=== PATIENT | female | born 1945 | race Hispanic/Latino ===

== ENCOUNTER 2016-11-18 11:13 | Outpatient (CLI) | payer MEDICARE, OTHER ==
[2016-11-18 13:13] LABS: ALT (SGPT) 49 U/L (0-55); AST (SGOT) 42 U/L (5-34); Alkaline Phosphatase 125 U/L (40-150); Anion Gap 16 mmol/L (10-20); BUN (Urea Nitrogen) 12 mg/dL (9.8-20.1); Bilirubin, Total 0.5 mg/dL (0.2-1.2); Calc. Creatinine Clearance 0 mL/min (70-130); Calcium 9.3 mg/dL (7.8-10.44); Carbon Dioxide 22 mmol/L (23-31); Chloride 104 mmol/L (98-107); Estimated GFR-MDRD 72; Globulin 2.8 g/dL (2.4-3.5); LDL Cholesterol, Calculated 64 mg/dL; Protein, Total 7.1 g/dL (5.8-8.1)
[2016-11-18 13:55] LABS: Hemoglobin A1c 9.5 % (4.0-6.0)
== END 2016-11-18 11:14 ==
LOC: NAVSJIPCSP 11:13
PROVIDERS: ATTEND Internal Medicine
DX: E11.40 Type 2 diabetes mellitus with diabetic neuropathy, unspecified (principal); I11.9 Hypertensive heart disease without heart failure; Z79.899 Other long term (current) drug therapy
CPT/HCPCS: 36415; 80053; 80061; 83036

== ENCOUNTER 2016-12-14 22:51 | Emergency (ER) | payer MEDICARE, OTHER ==
[2016-12-14] MEDS ORDERED: traMADol HCl 50 MG TAB ONE (23:43)
--- NOTE | 2016-12-15 00:02 | PICIS ---
[facility] EMERGENCY RECORD TRIAGE (23:08 [facility]) TRIAGE NOTES: SCRATCHED OLD INCISION BEHIND RIGHT EAR. BLEEDING CONTROLLED AT THIS TIME. STATES IT BLEAD LARGE AMOUNTS FOR APPROX 1 HOUR. BRAIN TUMOR REMOVED AUGUST 2015. (23:08 [facility]) PATIENT: NAME: Kelsey Lozoya, AGE: 71, GENDER: female, : Wed1945, TIME OF GREET: WedDec 14, 2016 22:52, PREFERRED LANGUAGE: Georgian, ETHNICITY: or , ECODE BILLING MAP: [facility], SSN: [id number], Zip Code: [address], KG WEIGHT: 61.23 (est.), PHONE: , , , PERSON ID: [id number], PCP: Cassidy BHATIA POLLACHI. (23:08 [facility]) COMPLAINT: BLEEDING ON NECK. (23:08 [facility]) ADMISSION: URGENCY: 4 Non Urgent, ADMISSION SOURCE: Home, TRANSPORT: CAR, BED: ER -04. (23:08 LK) PAIN: Patient complains of pain described as, pressure, on a scale 0-10 patient rates pain as 8, Location HEADACHE, Pain is constant. (23:11 LK) IMMUNIZATIONS: Flu vaccine up to date, Tetanus immunization up to date, Pneumococcal vaccine up to date. (23:11 LK) SIRS SCORING: Heart Rate 55-109 (0), Temp range 96.8-101.1 (0), respiratory rate 12-24 (0), Mental Status altered: no (0). (23:11 LK) TREATMENTS IN PROGRESS: Treatments given Prehospital: NONE. (23:11 LK) PROVIDERS: TRIAGE NURSE: Raina Pardo RN. (23:08 LK) VITAL SIGNS: BP 139/75, Pulse 104, Resp 20, Temp 99.3, (Oral), Pain 8, (Constant), O2 Sat 95, on Room Air, Time 12/14/2016 23:04. (23:04 LK) PREVIOUS VISIT ALLERGIES: No Known Drug Allergies. (23:08 LK) No Known Drug Allergies. (23:11 [facility]) KNOWN ALLERGIES No Known Drug Allergies CURRENT MEDICATIONS (23:10 [facility]) amitriptyline: TABLET : Strength - 25 mg : ORAL Patient Dose: 25 mg Oral See Notes.take 1 tablet by mouth 3 hours prior to sleep//out of medication. glipiZIDE-metformin: TABLET : Strength - 2.5 mg-500 mg : ORAL Patient Dose: 2 tab(s) Oral 2 times a day (with meals). Tradjenta: TABLET : Strength - 5 mg : ORAL Patient Dose: 5 mg Oral once a day. traMADol: TABLET : Strength - 50 mg : ORAL Patient Dose: 50 mg Oral every 4 to 6 hours. &a-1R&a+25V*p+0X*i1983Z*c202B*c15G*c2P*p-0X&a-25V&a+1R Name: Kelsey Lozoya : 1945 F71 MedRec: [id number] AcctNum: [id number] Prepared: WedDec 14, 2016 23:56 by Interface Page 1 of 4 D [facility] EMERGENCY RECORD simvastatin: TABLET : Strength - 80 mg : ORAL Patient Dose: 80 mg Oral once a day. PARoxetine HCl: TABLET : Strength - 40 mg : ORAL Patient Dose: 40 mg Oral once a day. Lantus: CARTRIDGE (ML) : Strength - 100 unit/mL : SUBCUTANEOUS Patient Dose: 40 units Subcutaneous once a day.unsure of insulin type. VITAL SIGNS (23:04 [facility]) VITAL SIGNS: BP: 139/75, Pulse: 104, Resp: 20, Temp: 99.3 (Oral), Pain: 8 (Constant), O2 sat: 95 on Room Air, Time: 12/14/2016 23:04. NURSING PROCEDURE: WOUND CARE (23:38 [facility]) WOUND CARE: Wound care indicated to promote healing, Wound site: BEHIND RIGHT EAR, Cause of wound: SX INCISION. FOLLOW-UP: After procedure, simple dressing applied, using 4x4 dressing, PRESSURE DRESSING APPLIED USING 3IN KERLIX WRAPPED AROUND PTS HEAD. MEDICATION ADMINISTRATION SUMMARY Drug Name: traMADol, Dose Ordered: 50 mg, Route: Oral, Status: Given, Time: 23:45 12/14/2016, Detailed record available in Medication Service section. MEDICATION SERVICE (23:45 [facility]) traMADol: Order: traMADol (tramadol HCl) - Dose: 50 mg : Oral POTENTIAL SEVERE INTERACTION: amitriptyline oral - Patient tolerated similar in past, This is one of her regular medications Ordered by: Noé Schaefer MD Entered by: Noé Schaefer MD WedDec 14, 2016 23:43 Documented as given by: Raina Pardo RN WedDec 14, 2016 23:45 Patient, Medication, Dose, Route and Time verified prior to administration. Amount given: 50MG, Site: Medication administered P.O., Patient appears Awake and alert- acceptable, Correct patient, time, route, dose and medication confirmed prior to administration, Patient advised of actions and side-effects prior to administration, Allergies confirmed and medications reviewed prior to administration. HPI WOUND CHECK (23:43 [facility]) CHIEF COMPLAINT: Patient presents for evaluation of scalp wound, Patient presents for evaluation of PT with an old scar from brain surgery 2 years ago presents with a recurrence of a bleeding complication she has had off and on for months. She was picking at the site tonight and it suddenly started bleeding. &a-1R&a+25V*p+0X*w3271H*c202B*c15G*c2P*p-0X&a-25V&a+1R Name: Kelsey Lozoya : 1945 F71 MedRec: [id number] AcctNum: [id number] Prepared: WedDec 14, 2016 23:56 by Interface Page 2 of 4 pMD [facility] EMERGENCY RECORD reports he tried stopping it for hours but was unable so came her. Has actually slowed since arrival. No other bleeding disorder. Pt reports her surgeon said he will try and revise the scar if she can get better control of her diabetes but she has been unable. HISTORIAN: History provided by patient, History provided by patient's family. LOCATION: Symptoms are localized. TIME COURSE: Sudden onset of symptoms, Symptoms are improving, are intermittent. ASSOCIATED WITH: No associated drainage, No associated fever, No associated proximal streaking, No associated redness. EXACERBATED BY: Patient's condition exacerbated by nothing. RELIEVED BY: Patient's condition relieved by nothing. ROS (23:45 [facility]) CONSTITUTIONAL: Historian denies chills, denies fever. NEUROLOGIC: Historian denies headache. HEMO/LYMPHATIC: Historian denies abnormal blood clotting. PAST MEDICAL HISTORY MEDICAL HISTORY: Flu vaccine up to date, Tetanus immunization up to date, Pneumococcal vaccine up to date, Notes: BRAIN TUMOR AT [place] (removed 08/19/15), Past medical history includes history of diabetes, Type II, Past medical history includes history of hyperlipidemia, high cholesterol, currently being treated. (23:11 [facility]) FEMALE SURGICAL HISTORY: BRAIN TUMOR REMOVAL (08/19/16), Surgical history of appendectomy, Surgical history of hysterectomy, Surgical history of oophorectomy. (23:11 [facility]K) PSYCHIATRIC HISTORY: Psychiatric history includes, depression. (23:11 [facility]) SOCIAL HISTORY: Patient denies alcohol use, Patient denies drug use, Patient has no smoking history, Lives at home, with family. (23:11 [facility]) NOTES: Nursing records reviewed, Agree with nursing records. (23:49 JL) PHYSICAL EXAM (23:46 JL) CONSTITUTIONAL: Vital signs reviewed, Patient appears non toxic, Patient alert and oriented to person, place and time. HEAD: Head exam included findings of head atraumatic, normocephalic, Behind right ear pt has an old surgical scar. Apparent defect between the muscles and soft tissues. Area is soft and has a small hole in the skin. Pressure produces several small blood clots with shrinking of the soft area of swelling. No erythema. EYES: Eye exam included findings of eyelids normal to inspection, Pupils equally round and reactive to light, Conjunctiva normal. NECK: Neck exam included findings of normal range of motion, Trachea midline. &a-1R&a+25V*p+0X*v9692F*c202B*c15G*c2P*p-0X&a-25V&a+1R Name: Kelsey Lozoya : 1945 F71 MedRec: [id number] AcctNum: [id number] Prepared: WedDec 14, 2016 23:56 by Interface Page 3 of 4 pMD [facility] EMERGENCY RECORD RESPIRATORY CHEST: Respiratory exam included findings of no respiratory distress, Chest exam included findings of chest movement symmetrical. NEURO: [place] coma scale 15, Neuro exam findings include patient oriented to person, place and time, Speech normal. SKIN: Skin exam included findings of skin warm, dry, and normal in color, no rash. PSYCHIATRIC: Normal affect. EVENTS TRANSFER: Triage to Emergency Emergency Room -04. (WedDec 14, 2016 23:08 [facility]) Removed from Emergency Emergency Room -04. (23:52 [facility]) DOCTOR NOTES (23:41 [facility]) TEXT: Minimal bleeding after pressure applied and no further hematoma collection. Pressure dressing applied and instructions given for changing tomorrow. PROBLEM LIST No recorded problems DIAGNOSIS (23:37 [facility]) FINAL: PRIMARY: NONTRAUMATIC HEMATOMA SOFT TISSUE. DISPOSITION PATIENT: Disposition Type: Discharge, Disposition: *Discharge Home. (23:37 [facility]) Patient left the department. (23:52 [facility]) INSTRUCTION (23:38 [facility]) DISCHARGE: HEMATOMA. FOLLOWUP: Cassidy BHATIA, [facility], [address] [place] [id number], [phone], Follow up with Primary Care Physician in 3-4 days. PRESCRIPTION No recorded prescriptions ADMIN (23:49 [facility]) DIGITAL SIGNATURE: MD Schaefer Joshua. [place]: [facility]=MD Schaefer Joshua [facility]=NEW Pardo, Raina &a-1R&a+25V*p+0X*[id number]*c202B*c15G*c2P*p-0X&a-25V&a+1R Name: Kelsey Lozoya : 1945 F71 MedRec: [id number] AcctNum: [id number] Prepared: WedDec 14, 2016 23:56 by Interface Page 4 of 4 pMD [facility] MEDICATION RECONCILIATION You were seen in the Emergency Department on: WedDec 14, 2016 KNOWN ALLERGIES No Known Drug Allergies MEDICATIONS GIVEN WHILE IN THE EMERGENCY DEPARTMENT traMADol (tramadol HCl) - Dose: 50 milligram(s) : Oral HOME MEDICATIONS CONTINUE PRESCRIBED amitriptyline : TABLET : Strength - 25 mg : ORAL Continue as prescribed Patient had been takin mg Oral See Notes. Comment: take 1 tablet by mouth 3 hours prior to sleep//out of medication. glipiZIDE-metformin : TABLET : Strength - 2.5 mg-500 mg : ORAL Continue as prescribed Patient had been takin tab(s) Oral 2 times a day (with meals). Lantus : CARTRIDGE (ML) : Strength - 100 unit/mL : SUBCUTANEOUS Continue as prescribed Patient had been takin units Subcutaneous once a day. Comment: unsure of insulin type. PARoxetine HCl : TABLET : Strength - 40 mg : ORAL Continue as prescribed Patient had been takin mg Oral once a day. simvastatin : TABLET : Strength - 80 mg : ORAL Continue as prescribed Patient had been takin mg Oral once a day. Tradjenta : TABLET : Strength - 5 mg : ORAL Continue as prescribed Patient had been takin mg Oral once a day. traMADol : TABLET : Strength - 50 mg : ORAL Continue as prescribed Patient had been takin mg Oral every 4 to 6 hours. &a-1R&a+25V*p+0X*w3387X*c202B*c15G*c2P*p-0X&a-25V&a+1R Name: Kelsey Lozoya : 1945 F71 MedRec: [id number] AcctNum: [id number] Prepared: WedDec 14, 2016 23:56 by Interface pMD [facility]
--- NOTE | 2016-12-15 00:02 | ERRECORD ---
[facility] EMERGENCY RECORD HPI WOUND CHECK (23:43 JL) CHIEF COMPLAINT: Patient presents for evaluation of scalp wound, Patient presents for evaluation of PT with an old scar from brain surgery 2 years ago presents with a recurrence of a bleeding complication she has had off and on for months. She was picking at the site tonight and it suddenly started bleeding. reports he tried stopping it for hours but was unable so came her. Has actually slowed since arrival. No other bleeding disorder. Pt reports her surgeon said he will try and revise the scar if she can get better control of her diabetes but she has been unable. HISTORIAN: History provided by patient, History provided by patient's family. LOCATION: Symptoms are localized. TIME COURSE: Sudden onset of symptoms, Symptoms are improving, are intermittent. ASSOCIATED WITH: No associated drainage, No associated fever, No associated proximal streaking, No associated redness. EXACERBATED BY: Patient's condition exacerbated by nothing. RELIEVED BY: Patient's condition relieved by nothing. ROS (23:45 JL) CONSTITUTIONAL: Historian denies chills, denies fever. NEUROLOGIC: Historian denies headache. HEMO/LYMPHATIC: Historian denies abnormal blood clotting. PAST MEDICAL HISTORY MEDICAL HISTORY: Flu vaccine up to date, Tetanus immunization up to date, Pneumococcal vaccine up to date, Notes: BRAIN TUMOR AT [place] (removed 08/19/15), Past medical history includes history of diabetes, Type II, Past medical history includes history of hyperlipidemia, high cholesterol, currently being treated. (23:11 [facility]) FEMALE SURGICAL HISTORY: BRAIN TUMOR REMOVAL (08/19/16), Surgical history of appendectomy, Surgical history of hysterectomy, Surgical history of oophorectomy. (23:11 LK) PSYCHIATRIC HISTORY: Psychiatric history includes, depression. (23:11 LK) SOCIAL HISTORY: Patient denies alcohol use, Patient denies drug use, Patient has no smoking history, Lives at home, with family. (23:11 LK) NOTES: Nursing records reviewed, Agree with nursing records. (23:49 [facility]LO[facility]) KNOWN ALLERGIES No Known Drug Allergies CURRENT MEDICATIONS (23:10 [facility]) amitriptyline: TABLET : Strength - 25 mg : ORAL Patient Dose: 25 mg Oral See Notes.take 1 tablet by mouth 3 &a-1R&a+25V*p+0X*s7348N*c202B*c15G*c2P*p-0X&a-25V&a+1R Name: Kelsey Lozoya : 1945 F71 MedRec: [id number] AcctNum: [id number] Prepared: WedDec 14, 2016 23:56 by Interface Page 1 of 3 pMD [facility] EMERGENCY RECORD hours prior to sleep//out of medication. glipiZIDE-metformin: TABLET : Strength - 2.5 mg-500 mg : ORAL Patient Dose: 2 tab(s) Oral 2 times a day (with meals). Tradjenta: TABLET : Strength - 5 mg : ORAL Patient Dose: 5 mg Oral once a day. traMADol: TABLET : Strength - 50 mg : ORAL Patient Dose: 50 mg Oral every 4 to 6 hours. simvastatin: TABLET : Strength - 80 mg : ORAL Patient Dose: 80 mg Oral once a day. PARoxetine HCl: TABLET : Strength - 40 mg : ORAL Patient Dose: 40 mg Oral once a day. Lantus: CARTRIDGE (ML) : Strength - 100 unit/mL : SUBCUTANEOUS Patient Dose: 40 units Subcutaneous once a day.unsure of insulin type. VITAL SIGNS (23:04 [facility]) VITAL SIGNS: BP: 139/75, Pulse: 104, Resp: 20, Temp: 99.3 (Oral), Pain: 8 (Constant), O2 sat: 95 on Room Air, Time: 12/14/2016 23:04. PHYSICAL EXAM (23:46 [facility]) CONSTITUTIONAL: Vital signs reviewed, Patient appears non toxic, Patient alert and oriented to person, place and time. HEAD: Head exam included findings of head atraumatic, normocephalic, Behind right ear pt has an old surgical scar. Apparent defect between the muscles and soft tissues. Area is soft and has a small hole in the skin. Pressure produces several small blood clots with shrinking of the soft area of swelling. No erythema. EYES: Eye exam included findings of eyelids normal to inspection, Pupils equally round and reactive to light, Conjunctiva normal. NECK: Neck exam included findings of normal range of motion, Trachea midline. RESPIRATORY CHEST: Respiratory exam included findings of no respiratory distress, Chest exam included findings of chest movement symmetrical. NEURO: [place] coma scale 15, Neuro exam findings include patient oriented to person, place and time, Speech normal. SKIN: Skin exam included findings of skin warm, dry, and normal in color, no rash. PSYCHIATRIC: Normal affect. MEDICATION ADMINISTRATION SUMMARY Drug Name: traMADol, Dose Ordered: 50 mg, Route: Oral, Status: Given, &a-1R&a+25V*p+0X*y2405E*c202B*c15G*c2P*p-0X&a-25V&a+1R Name: Kelsey Lozoya : 1945 F71 MedRec: [id number] AcctNum: [id number] Prepared: WedDec 14, 2016 23:56 by Interface Page 2 of 3 pMD [facility] EMERGENCY RECORD Time: 23:45 12/14/2016, Detailed record available in Medication Service section. DOCTOR NOTES (23:41 [facility]) TEXT: Minimal bleeding after pressure applied and no further hematoma collection. Pressure dressing applied and instructions given for changing tomorrow. PROBLEM LIST No recorded problems DIAGNOSIS (23:37 [facility]) FINAL: PRIMARY: NONTRAUMATIC HEMATOMA SOFT TISSUE. PRESCRIPTION No recorded prescriptions DISPOSITION PATIENT: Disposition Type: Discharge, Disposition: *Discharge Home. (23:37 [facility]) Patient left the department. (23:52 [facility]) [place]: [facility]=MD Silvano, Noé [facility]=NEW Pardo, Raina &a-1R&a+25V*p+0X*[id number]*c202B*c15G*c2P*p-0X&a-25V&a+1R Name: Kelsey Lozoya : 1945 F71 MedRec: [id number] AcctNum: [id number] Prepared: WedDec 14, 2016 23:56 by Interface Page 3 of 3 pMD [facility]
== END 2016-12-14 23:46 | disposition home or self-care (01) ==
LOC: NAV ERS 22:51
DX: M79.81 Nontraumatic hematoma of soft tissue (principal); E11.9 Type 2 diabetes mellitus without complications; E78.5 Hyperlipidemia, unspecified; E78.00 Pure hypercholesterolemia, unspecified; Z79.899 Other long term (current) drug therapy; Z85.841 Personal history of malignant neoplasm of brain
CPT/HCPCS: 99282

== ENCOUNTER 2017-02-16 10:37 | Outpatient (CLI) | payer MEDICARE, OTHER ==
[2017-02-16 13:09] LABS: Hemoglobin A1c 10.3 % (4.0-6.0)
[2017-02-16 13:45] LABS: Cardiac Risk 4.2 (Less than 4.5)
== END 2017-02-16 10:38 ==
LOC: NAVSJIPCSP 10:37
PROVIDERS: ATTEND Internal Medicine
DX: E11.40 Type 2 diabetes mellitus with diabetic neuropathy, unspecified (principal); E78.5 Hyperlipidemia, unspecified
CPT/HCPCS: 36415; 80061; 83036

== ENCOUNTER 2017-05-27 10:38 | Outpatient (CLI) | payer MEDICARE, OTHER ==
[2017-05-27 12:51] LABS: Hemoglobin A1c 9.3 % (4.0-6.0)
[2017-05-27 13:09] LABS: Cardiac Risk 4.1 (Less than 4.5)
== END 2017-05-27 10:39 | disposition home or self-care (01) ==
LOC: NAVSJIPCSP 10:38
PROVIDERS: ATTEND Internal Medicine
DX: E78.5 Hyperlipidemia, unspecified (principal); E11.40 Type 2 diabetes mellitus with diabetic neuropathy, unspecified; Z79.899 Other long term (current) drug therapy
CPT/HCPCS: 36415; 80061; 83036

== ENCOUNTER 2017-10-11 09:27 | Emergency (ER) | payer MEDICARE, OTHER ==
[2017-10-11 10:39] LABS: #Basophils 0.1 thou/uL (0.0-0.2); #Eosinphils 0.2 thou/uL (0.0-0.7); #Lymphocytes 1.7 thou/uL (1.20-3.40); #Monocytes 0.7 thou/uL (0.11-0.59); #Neutrophils 8.8 thou/uL (1.40-6.50); %Basophils 0.6 % (0.0-1.0); %Neutrophils 76.5 % (42.0-75.0); Hemoglobin 14.6 g/dL (12.0-16.0); Mean Corpuscular HGB CONC 31.8 g/dL (32.0-36.0); Mean Corpuscular Hemoglobin 28.6 pg (27.0-31.0); Mean Corpuscular Volume 89.9 fl (81.0-99.0); Mean Platelet Volume 9.9 fL (7.4-10.4); Platelet Count 204 thou/uL (130-400); RBC Distribution Width 12.6 % (11.5-14.5); Red Blood Cell (RBC) Count 5.12 mill/uL (4.20-5.40); White Blood Cell (WBC) Count 11.5 thou/uL (4.8-10.8)
[2017-10-11] MEDS ORDERED: Sodium Chloride 0.9% 1,000 ML ONE (10:49)
[2017-10-11 10:51] LABS: Bilirubin Negative (Negative); Blood, Urine Negative (Negative); Clarity Slightly Cloudy (Clear); Leukocyte Negative (Negative); Nitrite Negative (Negative); Protein, Urine (Dipstick) Trace mg/dL (Neg-Trace)
[2017-10-11 10:52] LABS: Glucose, Urine (Dipstick) 100 mg/dL (Negative)
[2017-10-11 10:52] LABS: ALT (SGPT) 29 U/L (8-55); AST (SGOT) 46 U/L (5-34); Albumin 4.4 g/dL (3.4-4.8); Alkaline Phosphatase 124 U/L (40-150); Anion Gap 19 mmol/L (10-20); BUN (Urea Nitrogen) 15 mg/dL (9.8-20.1); Bilirubin, Total Less than 0.1 mg/dL (0.2-1.2); Calc. Creatinine Clearance 0 mL/min (70-130); Calcium 10.3 mg/dL (7.8-10.44); Carbon Dioxide 24 mmol/L (23-31); Chloride 99 mmol/L (98-107); Estimated GFR-MDRD 63; Glucose 299 mg/dL (83-110); Potassium 4.7 mmol/L (3.5-5.1); Protein, Total Less than 0.8 g/dL (6.0-8.3); Sodium 137 mmol/L (136-145)
[2017-10-11 11:17] LABS: RBC/HPF 0-3 HPF (0-3)
[2017-10-11 11:18] LABS: Bacteria/HPF 1+ HPF (None Seen); Crystals/HPF 2+ AMORPH URATES HPF (Negative); Squamous Epithelial 0-3 HPF (0-3)
--- NOTE | 2017-10-11 11:42 | CT ---
NONCONTRAST CT OF THE BRAIN: INDICATION: A 72-year-old female with a history of illness, sore throat, cough, congestion, and fever. The patie nt had a fall a few days ago landing on her face without loss of consciousness. Now having some inco ntinence. COMPARISON: Prior CT of the brain dated 07/24/13 and MRI of the brain dated 05/25/17. FINDINGS: Postsurgical changes involving the right occipital skull are stable. No definite acute infarct, hemo rrhage, or hydrocephalus is present. Generalized cerebral and cerebellar atrophy is similar. No acu te infarct, hemorrhage, or hydrocephalus is noted. Mastoid air cells are clear. The skull is intact . IMPRESSION: 1. No acute intracranial abnormality. 2. Stable postoperative changes involving the right posterior cranial fossa. 3. Mild generalized cerebral and cerebellar atrophy. POS: [facility]
--- NOTE | 2017-10-11 11:46 | CT ---
CT FACE WITHOUT CONTRAST: INDICATIONS: Fall with facial trauma. FINDINGS: No displaced facial fracture is evident. There is mild paranasal sinus disease involving the ethmoid air cells, the sphenoid sinus, and the left maxillary sinus. There is advanced TMJ osteoarthrosis, which is similar to the comparison exam, dated 07/24/2013. There are scattered vascular calcificatio ns. The visualized intracranial contents appear within normal limits. The orbital rims are intact. The zygomatic arches are intact. There is worsening periapical lucency involving the right central maxillary incisor, which may reflect worsening periodontal disease. IMPRESSION: 1. No acute facial fracture. 2. Mild paranasal sinus disease. 3. Worsening periapical lucency involving the right central maxillary incisor, which may reflect wor sening periodontal disease. Dental consultation is recommended. 4. Advanced bilateral temporomandibular joint osteoarthrosis. POS: [facility]
--- NOTE | 2017-10-11 11:54 | RAD ---
AP VIEW CHEST: 10/11/2017 HISTORY: A 72-year-old female with a history of a cough. COMPARISON: 05/10/2012 FINDINGS: AP view chest demonstrates suboptimal inspiratory effort. There is mild elevation of the right hemid iaphragm. Mild pulmonary vascular congestion is seen. No evidence of effusions, pneumonia, or pneum othorax is seen. IMPRESSION: Suboptimal inspiratory effort and elevated right hemidiaphragms. POS: [facility]
[2017-10-11] MEDS ORDERED: Sulfameth/Trimethoprim DS 800-160mg TAB ONE (12:10)
== END 2017-10-11 12:53 | disposition home or self-care (01) ==
LOC: NAV ERS 09:27
DX: B34.9 Viral infection, unspecified (principal); S00.83XA Contusion of other part of head, initial encounter; N39.0 Urinary tract infection, site not specified; E78.5 Hyperlipidemia, unspecified; E11.9 Type 2 diabetes mellitus without complications; F32.9 Major depressive disorder, single episode, unspecified; Z79.899 Other long term (current) drug therapy; Z79.4 Long term (current) use of insulin; Z79.891 Long term (current) use of opiate analgesic; X58.XXXA Exposure to other specified factors, initial encounter
CPT/HCPCS: 70450; 70486; 71010; 80053; 81001; 81003; 83605; 83880; 85025; 87040; 87081; 87086; 87430; 93005; 94760; 96360; 96361; A4353; J7050

== ENCOUNTER 2017-12-04 11:02 | Emergency (ER) | payer MEDICARE, OTHER | END 2017-12-04 11:32 | disposition home or self-care (01) | LOC: NAV ERS 11:02 | DX: H60.22 Malignant otitis externa, left ear (principal); E11.9 Type 2 diabetes mellitus without complications; E78.5 Hyperlipidemia, unspecified; F32.9 Major depressive disorder, single episode, unspecified; Z79.84 Long term (current) use of oral hypoglycemic drugs; Z79.891 Long term (current) use of opiate analgesic; Z79.899 Other long term (current) drug therapy; Z85.841 Personal history of malignant neoplasm of brain | CPT/HCPCS: 99282 ==

== ENCOUNTER 2018-03-11 11:03 | Emergency (ER) | payer MEDICARE, OTHER ==
[2018-03-11] MEDS ORDERED: Benzonatate 100 MG CAP ONE (12:04)
--- NOTE | 2018-03-11 12:19 | RAD ---
PORTABLE FRONTAL CHEST RADIOGRAPH: 03/11/2018 HISTORY: Wheezing. Cough. Congestion. COMPARISON: 10/11/2017 FINDINGS: Stable mild interstitial prominence noted in the perihilar regions. No pneumothorax, pleural fluid, focal consolidation, or alveolar edema. IMPRESSION: No acute findings. Stable appearance of the chest. POS: [facility]
[2018-03-11 13:35] LABS: Bilirubin Small (Negative); Blood, Urine Negative (Negative); Clarity Slightly Cloudy (Clear); Glucose, Urine (Dipstick) 250 mg/dL (Negative); Leukocyte Negative (Negative); Nitrite Negative (Negative); Protein, Urine (Dipstick) 30 mg/dL (Neg-Trace); Specific Gravity, Urine 1.025 (1.005-1.030)
[2018-03-11 13:47] LABS: RBC/HPF 0-3 HPF (0-3)
[2018-03-11 13:48] LABS: Bacteria/HPF 1+ HPF (None Seen); Hyaline Casts/LPF 0-3 HYALINE CAST LPF (0-3 Hyaline)
== END 2018-03-11 14:14 | disposition home or self-care (01) ==
LOC: NAV ERS 11:03
DX: J20.9 Acute bronchitis, unspecified (principal); E11.9 Type 2 diabetes mellitus without complications; E78.5 Hyperlipidemia, unspecified; F32.9 Major depressive disorder, single episode, unspecified; Z79.891 Long term (current) use of opiate analgesic; Z79.899 Other long term (current) drug therapy; Z79.84 Long term (current) use of oral hypoglycemic drugs
CPT/HCPCS: 51701; 71045; 81003; 81015; 93005; 94640; A4353; J7620

== ENCOUNTER 2018-07-09 17:07 | Emergency (ER) | payer MEDICARE, OTHER ==
[2018-07-09 17:50] LABS: Bilirubin Negative (Negative); Blood, Urine Negative (Negative); Glucose, Urine (Dipstick) 250 mg/dL (Negative); Leukocyte Trace (Negative); Nitrite Negative (Negative); Protein, Urine (Dipstick) 30 mg/dL (Neg-Trace); Specific Gravity, Urine 1.025 (1.005-1.030)
[2018-07-09 17:53] LABS: Clarity Hazy (Clear)
--- NOTE | 2018-07-09 18:01 | CT ---
CT BRAIN NONCONTRAST: DATE: 07/09/18 TIME: 5:45 p.m. HISTORY: 73-year-old female with altered mental status. COMPARISON: 10/11/17. FINDINGS: Again noted are the right occipital craniotomy changes, with the osseous defect bridged by metallic m esh. Deep to this, there is a small region of right cerebellar encephalomalacia and gliosis. Moderate dilation of the lateral and third ventricles is unchanged since the previous CT. Mild to mod erate diffuse chronic ischemic white matter changes, and diffuse mild brain parenchymal volume loss. No acute intra-axial hemorrhage, mass effect, midline shift, or extra-axial fluid collection. No acut e calvarial fracture. No interval change overall. IMPRESSION: 1. Old right posterior fossa postsurgical changes. 2. No acute intracranial findings. 3. Ventriculomegaly. 4. Chronic ischemic white matter changes and diffuse involutional changes. 5. No interval change overall since 10/11/17. IMELDA Crowell POS: [facility]
[2018-07-09 18:04] LABS: Bacteria/HPF 2+ HPF (None Seen); Crystals/HPF 2+ AMORPH URATES HPF (Negative); Squamous Epithelial 0-3 HPF (0-3)
--- NOTE | 2018-07-09 18:10 | RAD ---
RADIOGRAPH CHEST 1 VIEW: 07/09/18 HISTORY: 73-year-old female with fever. FINDINGS: Lungs are hypoinflated, making this a limited study. There is no air space density, pulmonary edema, or pneumothorax. The lateral costophrenic angles are sharp. IMPRESSION: No acute pulmonary findings. ondina [] POS: [facility]
[2018-07-09 18:44] LABS: #Eosinphils 0.1 thou/uL (0.0-0.7); #Lymphocytes 1.2 thou/uL (1.20-3.40); #Monocytes 0.6 thou/uL (0.11-0.59); #Neutrophils 8.8 thou/uL (1.40-6.50); %Basophils 0.4 % (0.0-1.0); %Eosinophils 0.7 % (0.0-10.0); %Lymphocytes 11.4 % (21.0-51.0); %Monocytes 5.4 % (0.0-10.0); %Neutrophils 82.1 % (42.0-75.0); Hemoglobin 13.4 g/dL (12.0-16.0); Mean Corpuscular Hemoglobin 27.7 pg (27.0-31.0); Mean Corpuscular Volume 86.6 fL (78.0-98.0); Platelet Count 167 thou/uL (130-400); RBC Distribution Width 12.3 % (11.5-14.5); Red Blood Cell (RBC) Count 4.86 mill/uL (4.20-5.40); White Blood Cell (WBC) Count 10.7 thou/uL (4.8-10.8)
[2018-07-09 18:48] LABS: ALT (SGPT) 34 U/L (8-55); AST (SGOT) 46 U/L (5-34); Albumin 4.3 g/dL (3.4-4.8); Alkaline Phosphatase 100 U/L (40-150); Anion Gap 16 mmol/L (10-20); BUN (Urea Nitrogen) 12 mg/dL (9.8-20.1); Bilirubin, Total 0.7 mg/dL (0.2-1.2); CK (CPK) 76 U/L (29-168); Calc. Creatinine Clearance 0 mL/min (70-130); Calcium 9.7 mg/dL (7.8-10.44); Carbon Dioxide 20 mmol/L (23-31); Chloride 102 mmol/L (98-107); Estimated GFR-MDRD 75; Globulin 3.1 g/dL (2.4-3.5); Glucose 199 mg/dL (83-110); Lipase 21 U/L (8-78); Protein, Total 7.4 g/dL (6.0-8.3); Sodium 134 mmol/L (136-145)
[2018-07-09 18:52] LABS: CKMB 2.2 ng/mL (0-6.6); Troponin I Less than 0.010 ng/mL (< 0.028)
[2018-07-09] MEDS ORDERED: Acetaminophen 500 MG TAB ONE (18:53)
[2018-07-09] MEDS ORDERED: Sodium Chloride 0.9% 1,000 ML ONE (18:53)
[2018-07-09] MEDS ORDERED: cefTRIAXone\\ROCEPHIN 1 GM VIAL ONE (19:05)
[2018-07-09] MEDS ORDERED: Levofloxacin 500 mg/D5W 100 ml Premix Bag ONE (19:05)
== END 2018-07-09 20:49 | disposition short-term general hospital (02) ==
LOC: NAV ERS 17:07
DX: A41.9 Sepsis, unspecified organism (principal); N39.0 Urinary tract infection, site not specified; R41.82 Altered mental status, unspecified; E11.9 Type 2 diabetes mellitus without complications; E78.5 Hyperlipidemia, unspecified; Z79.899 Other long term (current) drug therapy
CPT/HCPCS: 51701; 70450; 71045; 80053; 81003; 81015; 82553; 83605; 83690; 84484; 85025; 87040; 87077; 87086; 87186; 93005; 96365; 96375; A4353; J0696; J1956; J7050

== ENCOUNTER 2018-07-14 16:34 | Inpatient (IN) | payer MEDICARE, OTHER ==
[2018-07-14 16:40] VITALS: BMI 26.9
[2018-07-14] MEDS ORDERED: HYDROcodone/Acetaminophen 10/325 mg Tablet PO PRN (18:36)
[2018-07-14] MEDS ORDERED: PROVENTIL INHALER 6.7 G (200 INHALATIONS) INH PRN (19:00)
[2018-07-14] MEDS: Simvastatin 40 MG TAB PO SCH (20:35)
[2018-07-14] MEDS: guaiFENesin ER 600 MG TAB PO SCH (20:36)
[2018-07-14] MEDS ORDERED: Amitriptyline HCl 25 MG TAB PO SCH (21:00)
[2018-07-14] MEDS ORDERED: Levemir Flexpen 100 UNITS/ML PEN SC SCH (21:00)
[2018-07-14] MEDS ORDERED: Insulin Glargine 100 UNIT/ML 3 ML PEN SQ SCH (21:00)
--- NOTE | 2018-07-15 00:30 | HP ---
DATE OF ADMISSION: 07/14/2018 CHIEF COMPLAINT: Status post cholecystitis and cholecystectomy for physical therapy. BRIEF HISTORY: This is a very pleasant 73-year-old female with extensive past medical history, was a dmitted to [facility] on 07/09/2018 with confusion and fever. Initial diagnosis was uri nary tract infection. She continued to have fever despite IV antibiotic therapy and so she underwent CT abdomen and pelvis, which was suggestive of cholecystitis. She then underwent an abdominal ultra sound and then underwent surgical removal of gallbladder by Dr. Song. She has been switched over to oral antibiotics. Her confusion has mostly cleared. She does have some baseline mild dementia. Sh e was significantly deconditioned, so she has been transferred here for therapy. Currently, patient is in the room with her . She denies any complaints. She is tolerating her p.o. intake. She also has history of brain tumor, status post removal. She has lumbar spine degenerative disk diseas e. PAST MEDICAL HISTORY: 1. Diabetes mellitus type 2. 2. Dyslipidemia. 3. Brain tumor, status post removal. 4. 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 5. Mild dementia. 6. Hypertension. 7. Anxiety and depression. PAST SURGICAL HISTORY: 1. Appendectomy. 2. Oophorectomy. 3. Brain tumor removal. 4. Recent laparoscopic cholecystectomy. ALLERGIES: No known drug allergies. FAMILY HISTORY: Noncontributory to current admission. PSYCHOSOCIAL HISTORY: She has very good family support through her , her nephews also involve d in her care. No documented history of tobacco, alcohol, or IV drug abuse. REVIEW OF SYSTEMS: Cardiovascular: Denies any chest pain, shortness of breath, palpitations, PND, o rthopnea, or pedal edema. Respiratory: Denies any chronic cough, expectoration, or pleuritic type c hest pain. Gastrointestinal: Improving abdominal-much improved nausea. Denies any hematemesis, charmaine octavio, or hematochezia. Genitourinary: Denies any frequency, urgency, dysuria, or hematuria. Central Nervous System: Generalized weakness. HEENT: No difficulty with speech, vision, hearing, or swall owing. PHYSICAL EXAMINATION: GENERAL: A very pleasant 73-year-old female in no apparent distress. She responds appropriately to questions. She is able to recognize me. Her is in the room. VITAL SIGNS: She is afebrile, heart rate 87, respirations 20, oxygen saturation 93% on room air, blo od pressure is 150/79. HEENT: Normocephalic, atraumatic. Pupils are equal and reactive to light and accommodation. NECK: No JVD, thyromegaly, cervical adenopathy, throat exudates, no carotid bruits. CARDIOVASCULAR: S1, S2 plus rate and rhythm regular. RESPIRATORY SYSTEM: Normal vesicular breath sounds heard in all lung andres. ABDOMEN: Soft, minimal tenderness in the incision area. Bowel sounds heard in all quadrants. No gu arding, rebound, or rigidity. EXTREMITIES: Without cyanosis or clubbing. Peripheral pulses are palpable. CENTRAL NERVOUS SYSTEM: Generalized weakness. LABORATORY VALUES: Blood sugars are 238, 261, 310, 269. IMPRESSION: 1. Cholecystitis, status post cholecystectomy. 2. Diabetes mellitus type 2. 3. Hypertension. 4. Dyslipidemia. 5. Chronic back pain with lumbar degenerative disk disease. 6. History of brain tumor, status post surgery. 7. Anxiety and depression. 8. Possible mild dementia and significant deconditioning. PLAN: 1. Continue discharge medications from previous hospital. 2. Diet: As tolerated, but they will be an 1800 calorie, heart-healthy diet. The consistency will be as tolerated. 3. Accu-Cheks with sliding scale coverage. 4. Deep venous thrombosis prophylaxis with PlexiPulses. 5. Monitor blood pressure and adjust medications as needed. 6. Check CBC and BMP in the morning. 7. Consult physical therapy and occupational therapy. 8. I discussed with the patient and in detail and all questions were answered.
[2018-07-15 05:56] LABS: Anion Gap 16 mmol/L (10-20); BUN (Urea Nitrogen) 10 mg/dL (9.8-20.1); Calc. Creatinine Clearance 63 mL/min (70-130); Calcium 9.9 mg/dL (7.8-10.44); Carbon Dioxide 21 mmol/L (23-31); Chloride 99 mmol/L (98-107); Estimated GFR-MDRD 66; Glucose 280 mg/dL (83-110); Potassium 3.8 mmol/L (3.5-5.1); Sodium 132 mmol/L (136-145)
[2018-07-15 06:07] LABS: Band 20 % (5-11); Eosinophils 1 % (0-10); Hemoglobin 13.7 g/dL (12.0-16.0); Lymphocytes 15 % (21-51); MDiff Complete? YES; Mean Corpuscular Hemoglobin 28.2 pg (27.0-31.0); Mean Corpuscular Volume 88.3 fL (78.0-98.0); Metamyelocyte 2 % (0-0); Monocytes 4 % (0-10); Neutrophil 58 % (42-75); PLT Morphology Comment Appears Adequate; Platelet Count 168 thou/uL (130-400); RBC Morphology Normal; Red Blood Cell (RBC) Count 4.85 mill/uL (4.20-5.40)
[2018-07-15] MEDS: PARoxetine 20 MG TAB PO SCH (07:51)
[2018-07-15] MEDS: guaiFENesin ER 600 MG TAB PO SCH ×2 (07:52→20:17)
[2018-07-15] MEDS: Hydrochlorothiazide 25 MG TAB PO SCH (07:52)
[2018-07-15] MEDS: Alogliptin 25 MG TAB PO SCH (07:53)
[2018-07-15] MEDS ORDERED: Insulin Glargine 100 UNIT/ML 3 ML PEN SQ SCH (08:21)
--- NOTE | 2018-07-15 08:41 | PRG ---
DATE OF SERVICE: 07/15/2018 SUBJECTIVE: Ms. Lozoya is doing well. Her caregiver is in the room. She is eating her breakfast . She apparently did not sleep that well last night because pharmacy apparently switched her time on her Elavil back to 9:00 p.m. I had changed it to 7:00 p.m., which is how the patient takes it [place]. No other concerns or questions. She is going to be evaluated by therapy today and start therapy . She was also started on her long-acting insulin, but at a lower dose last night. OBJECTIVE: VITAL SIGNS: She is afebrile, heart rate 93, respirations 22, oxygen saturation 93% on room air, blo od pressure 152/84. CARDIOVASCULAR: S1, S2 plus, rate and rhythm regular. RESPIRATORY: Normal vesicular breath sounds heard in all lung andres. ABDOMEN: Soft. Minimal tenderness. Incisions look healthy. Bowel sounds heard in all quadrants. EXTREMITIES: Without cyanosis or clubbing. CENTRAL NERVOUS SYSTEM: Generalized weakness. LABORATORY VALUES: White count is 10, H&H is 13.7 and 42.8 with a platelet count of 168. Sodium sli ghtly low at 132, potassium 3.8, BUN and creatinine is 10 and 0.84. Blood sugars are 269, 309, 277. IMPRESSION: 1. Status post cholecystitis and underwent cholecystectomy. 2. Diabetes mellitus type 2. 3. Hypertension. 4. Dyslipidemia. 5. Anxiety and depression. 6. Lumbar degenerative disk disease. 7. Possible early dementia. 8. History of brain tumor, status post surgery. PLAN: 1. Increase long-acting insulin to 40 units at night. 2. Continue sliding scale coverage. 3. 1800 calorie heart healthy diet. 4. Deep venous thrombosis prophylaxis with PlexiPulses. 5. Continue current medications. 6. Routine laboratory values. 7. Physical therapy. 8. Discussed with patient and caregiver in detail and all questions answered. 9. Discussed with nursing and they are going to change the amitriptyline timing back to 7:[address] Soraya Baker synchronizer this weekend.
[2018-07-15] MEDS ORDERED: RESVERATROL 50 MG PO SCH (09:00)
[2018-07-15] MEDS ORDERED: HYDROcodone/Acetaminophen 10/325 mg Tablet PO PRN (11:15)
[2018-07-15] MEDS ORDERED: Dextrose 5% in Water 1,000 ML IV PRN (14:31)
[2018-07-15] MEDS ORDERED: Dextrose 50% Abboject 50 ML SYRINGE IVP PRN (14:31)
[2018-07-15] MEDS: HumaLOG 300 UNITS/3 ML VIAL SC PRN ×2 (17:50→20:21)
[2018-07-15] MEDS: traMADol HCl 50 MG TAB PO PRN (17:57)
[2018-07-15] MEDS: Acetaminophen 500 MG TAB PO PRN (17:57)
[2018-07-15] MEDS: Amitriptyline HCl 25 MG TAB PO SCH (18:41)
[2018-07-15] MEDS: Simvastatin 40 MG TAB PO SCH (20:17)
[2018-07-16] MEDS: HumaLOG 300 UNITS/3 ML VIAL SC PRN ×4 (06:10→20:34)
--- NOTE | 2018-07-16 08:21 | PRG ---
DATE OF SERVICE: 07/16/2018 DATE OF ADMISSION: 07/14/2018 Ms. Lozoya is a very pleasant 73-year-old female. She was admitted to [facility] through the emergency room with a diagnosis of urinary tract infection and sepsis. She also was fo und to have cholecystitis and had a cholecystectomy done by Dr. Song. She has done much better, con fusion has cleared, and she was transferred here because of her significant deconditioning. She is h ere for physical therapy and occupational therapy. The patient does have multiple comorbidities including diabetes mellitus, type 2; hypertension; degen erative disk disease of the lumbar spine; mild dementia; hyperlipidemia. PHYSICAL EXAMINATION: VITAL SIGNS: Today, reveal blood pressure 136/65, pulse 101, respirations 20, O2 sat 94-95% on room air, T-max 99.3, weight 151 pounds. GENERAL: This is a well-developed, well-nourished, slightly obese female, in no apparent di stress at this time. HEENT: Reveals normocephalic, nontraumatic cranium. Pupils are equally round and reactive. Extraoc ular movements intact. Nose and throat are slightly dry. NECK: Supple, without mass, nodes, or bruits. CHEST: Clear to auscultation. No rales, no rhonchi, no wheezes are heard. CARDIOVASCULAR: Reveals a regular rate and rhythm without murmurs, gallops, or rubs. ABDOMEN: Soft, slightly obese, nontender. Incision looks good. Normal bowel sounds in all 4 quadra nts. No rebound or guarding is noted. EXAM: Deferred. EXTREMITIES: Reveal no clubbing, cyanosis, or edema. LABORATORY DATA: Reveals an Accu-Chek yesterday morning fasting 227, before lunch 303, before supper 354, last night before bedtime 433, this morning fasting is 284. She presently is on 40 units subcu taneous, which she got last night. After significant discussion, we decided to go ahead and split her dose and give her 25 units twice a day and she will start that this morning. IMPRESSION: 1. Cholecystitis, status post cholecystectomy. 2. Diabetes, uncontrolled. 3. Hypertension. 4. Hyperlipidemia. 5. Chronic back pain, secondary to lumbar disk disease. 6. History of brain tumor, status post surgery. 7. Anxiety/depressive disorder. 8. Possible mild dementia. 9. Significant generalized weakness. PLAN: 1. Continue present medications. 2. Increase Lantus to 25 units subcu this morning and then 25 units b.i.d. 3. Continue Accu-Cheks with sliding scale. 4. Deep venous thrombosis prophylaxis. 5. Monitor blood pressure and adjust as needed. 6. Lab this morning is pending. 7. Continue physical therapy and occupational therapy.
[2018-07-16] MEDS: Insulin Glargine 100 UNIT/ML 3 ML PEN SQ SCH ×2 (08:57→20:33)
[2018-07-16] MEDS: Acetaminophen 500 MG TAB PO PRN (08:58)
[2018-07-16] MEDS: PARoxetine 20 MG TAB PO SCH (08:58)
[2018-07-16] MEDS: Alogliptin 25 MG TAB PO SCH (08:58)
[2018-07-16] MEDS: Hydrochlorothiazide 25 MG TAB PO SCH (08:58)
[2018-07-16] MEDS: guaiFENesin ER 600 MG TAB PO SCH ×2 (08:58→20:32)
[2018-07-16] MEDS: traMADol HCl 50 MG TAB PO PRN (08:59)
[2018-07-16] MEDS ORDERED: Milk Of Magnesia 30 ML UDCUP PO PRN (18:17)
[2018-07-16] MEDS ORDERED: Bisacodyl 10 MG SUPP PR SCH (18:30)
[2018-07-16] MEDS ORDERED: Polyethylene Glycol 3350 17 GM Packet PO SCH (18:30)
[2018-07-16] MEDS: Amitriptyline HCl 25 MG TAB PO SCH (18:31)
[2018-07-16] MEDS: Simvastatin 40 MG TAB PO SCH (20:32)
[2018-07-17] MEDS: HumaLOG 300 UNITS/3 ML VIAL SC PRN ×4 (06:17→20:28)
--- NOTE | 2018-07-17 07:35 | RAD ---
ABDOMEN 1 VIEW: HISTORY: A 73-year-old female with a history of constipation with concern for obstruction. FINDINGS: There is fairly considerable solid fecal burden throughout the entire colon and rectum. There is arnie e minimal gas in nondilated small bowel. No overt calculus. No evidence for significant bowel obstr uction. IMPRESSION: Considerable fecal burden throughout the colon and rectum. No other significant acute process. No o vert bowel obstruction. POS: [facility]
[2018-07-17 08:45] LABS: ALT (SGPT) 97 U/L (8-55); AST (SGOT) 66 U/L (5-34); Albumin 3.8 g/dL (3.4-4.8); Alkaline Phosphatase 226 U/L (40-150); Anion Gap 16 mmol/L (10-20); BUN (Urea Nitrogen) 17 mg/dL (9.8-20.1); Bilirubin, Total 0.7 mg/dL (0.2-1.2); Calc. Creatinine Clearance 58 mL/min (70-130); Calcium 10.1 mg/dL (7.8-10.44); Carbon Dioxide 22 mmol/L (23-31); Chloride 100 mmol/L (98-107); Estimated GFR-MDRD 60; Glucose 222 mg/dL (83-110); Potassium 3.7 mmol/L (3.5-5.1); Protein, Total 7.8 g/dL (6.0-8.3); Sodium 134 mmol/L (136-145)
[2018-07-17] MEDS ORDERED: Magnesium Citrate 300 ML BOT PO SCH (08:45)
[2018-07-17] MEDS ORDERED: Fleet Enema 133 ML BOT FS SCH (08:45)
--- NOTE | 2018-07-17 09:00 | PRG ---
DATE OF SERVICE: 07/17/2018 DATE OF ADMISSION: 07/14/2018 HISTORY OF PRESENT ILLNESS: Ms. Lozoya is a very pleasant 73-year-old white female that initially presented to [facility] through the ER with a urinary tract infection, sepsis. She was fou nd to have cholecystitis and a colectomy was done by Dr. Song. Postoperatively, she did well. Her confusion has cleared. She was transferred here for PT and OT. The patient states she is doing well and has no complaints today. She has not had a bowel movement s giovanna her surgery. Flat plate of the abdomen reveals quite a bit of stool load. This morning, she fe els kind of cold and clammy. It was noted that her white count a couple days ago was 10,000. We micky l repeat a CBC and a comp met this morning. She states she is doing well and eating well and has no complaints at all today. VITAL SIGNS: Today, reveal blood pressure this morning 126/65, pulse 96, respirations 20, T-max last night was 100.1. LABORATORY DATA: Lab has been ordered with a comp met, a CBC, and a urinalysis this morning. Flat p late of the abdomen already done reveals increased stool burden. PHYSICAL EXAMINATION: GENERAL: This is a well-developed, well-nourished, pleasant female in no apparent distress at this time. She has no complaints today. HEENT: Reveals normocephalic, nontraumatic cranium. Pupils equally, round, and reactive. Nose and throat are slightly dry. NECK: Supple, without mass, nodes, or bruits. LUNGS: Chest is clear to auscultation. No rales, no rhonchi, no wheezes, and no cough is heard. CARDIOVASCULAR: Reveals a regular rate and rhythm. No murmurs, gallops, or rubs are noted. ABDOMEN: Soft and nontender. Normal bowel sounds are slow this morning. No rebound or guarding is noted. EXAM: Deferred. EXTREMITIES: Reveal no clubbing, cyanosis, or edema, just cold extremities. Sugars yesterday revealed, fasting yesterday morning 284, before lunch 288, before supper 333, before bedtime 276; this morning fasting was 266. We did increase her Levemir from 25 b.i.d. to 30 b.i.d. this morning. IMPRESSION: 1. Status post cholecystectomy. 2. Diabetes, uncontrolled, increasing insulin. 3. Hypertension. 4. Hyperlipidemia. 5. Chronic back pain, secondary to lumbar disk disease. 6. History of brain tumor in the distant past, status post surgical resection. 7. Anxiety/depressive disorder. 8. Possible mild dementia. 9. Significant generalized weakness. PLAN: 1. CBC and comp met this morning. 2. Urinalysis this morning. 3. Increase Lantus to 30 units subcu b.i.d. starting this morning. 4. Continue Accu-Cheks a.c. and at bedtime. 5. Continue stress ulcer prophylaxis. 6. Continue deep venous thrombosis prophylaxis. 7. Continue to monitor the patient's blood pressure. 8. Continue to monitor the patient's diabetes with Accu-Cheks a.c. and at bedtime. 9. Continue physical therapy and occupational therapy. 10. Lab will be called through me.
[2018-07-17] MEDS: Polyethylene Glycol 3350 17 GM Packet PO SCH (09:16)
[2018-07-17] MEDS: Hydrochlorothiazide 25 MG TAB PO SCH (09:16)
[2018-07-17] MEDS: Alogliptin 25 MG TAB PO SCH (09:17)
[2018-07-17] MEDS: guaiFENesin ER 600 MG TAB PO SCH ×2 (09:17→20:29)
[2018-07-17] MEDS: PARoxetine 20 MG TAB PO SCH (09:17)
[2018-07-17] MEDS: Insulin Glargine 100 UNIT/ML 3 ML PEN SQ SCH ×2 (09:19→20:27)
[2018-07-17 09:58] LABS: Band 9 % (5-11); Eosinophils 4 % (0-10); Hemoglobin 14.4 g/dL (12.0-16.0); Lymphocytes 19 % (21-51); MDiff Complete? YES; Mean Corpuscular HGB CONC 31.9 g/dL (32.0-36.0); Mean Corpuscular Hemoglobin 28.2 pg (27.0-31.0); Mean Corpuscular Volume 88.5 fL (78.0-98.0); Mean Platelet Volume 9.7 fL (7.4-10.4); Monocytes 5 % (0-10); Neutrophil 63 % (42-75); PLT Morphology Comment Appears Adequate; Platelet Count 216 thou/uL (130-400); RBC Distribution Width 12.2 % (11.5-14.5); RBC Morphology Normal; Red Blood Cell (RBC) Count 5.12 mill/uL (4.20-5.40); White Blood Cell (WBC) Count 13.1 thou/uL (4.8-10.8)
[2018-07-17 10:07] LABS: Bilirubin Negative (Negative); Blood, Urine Negative (Negative); Clarity Clear (Clear); Glucose, Urine (Dipstick) 250 mg/dL (Negative); Leukocyte Negative (Negative); Nitrite Negative (Negative); Protein, Urine (Dipstick) 30 mg/dL (Neg-Trace); Urobilinogen 0.2 mg/dL (0.2-1.0)
[2018-07-17 10:58] LABS: Specific Gravity, Urine 1.031 (1.002-1.036)
[2018-07-17 10:59] LABS: Bacteria/HPF Rare-Few HPF (None Seen); RBC/HPF 0-3 HPF (0-3); Squamous Epithelial 0-3 HPF (0-3)
[2018-07-17] MEDS: Amitriptyline HCl 25 MG TAB PO SCH (18:35)
[2018-07-17] MEDS: Simvastatin 40 MG TAB PO SCH (20:29)
[2018-07-18] MEDS: HumaLOG 300 UNITS/3 ML VIAL SC PRN ×4 (06:09→20:38)
[2018-07-18] MEDS: guaiFENesin ER 600 MG TAB PO SCH ×2 (08:40→20:37)
[2018-07-18] MEDS: Alogliptin 25 MG TAB PO SCH (08:40)
[2018-07-18] MEDS: Hydrochlorothiazide 25 MG TAB PO SCH (08:40)
[2018-07-18] MEDS: Insulin Glargine 100 UNIT/ML 3 ML PEN SQ SCH ×2 (08:41→20:38)
[2018-07-18] MEDS: PARoxetine 20 MG TAB PO SCH (08:41)
[2018-07-18] MEDS: Polyethylene Glycol 3350 17 GM Packet PO SCH (08:41)
--- NOTE | 2018-07-18 18:00 | PRG ---
DATE OF SERVICE: 07/18/2018 SUBJECTIVE: Ms. Lozoya had a good bowel movement. She is resting comfortably. She apparently wa lked 6 steps. She is eating more than half of her meals. Her blood sugar continues to remain high. Her spouse is in the room and no concerns. OBJECTIVE: VITAL SIGNS: She is afebrile, heart rate is 85, respirations 18, oxygen saturation 92% on room air, blood pressure 123/60. CARDIOVASCULAR: S1, S2 plus. RESPIRATORY: Normal vesicular breath sounds. ABDOMEN: Soft, nontender, bowel sounds heard in all quadrants. EXTREMITIES: Without cyanosis or clubbing. CENTRAL NERVOUS SYSTEM: Generalized weakness. LABORATORY VALUES: White count is 13.1, H&H is 14.4 and 45.3. Blood sugars are 351, 195, 262 and 30 0. IMPRESSION: 1. Diabetes mellitus type 2, not well controlled. 2. Constipation. 3. Status post cholecystectomy. 4. Significant deconditioning. 5. Hypertension. 6. Dyslipidemia. 7. Deconditioning. PLAN: 1. Increase long-acting insulin to 45 units. 2. Bowel regimen. 3. 1800 calorie heart healthy diet. 4. Physical therapy. 5. DVT and stress ulcer prophylaxis. 6. Routine laboratory values.
[2018-07-18] MEDS: Amitriptyline HCl 25 MG TAB PO SCH (18:56)
[2018-07-18] MEDS: Simvastatin 40 MG TAB PO SCH (20:37)
[2018-07-19 05:50] LABS: #Basophils 0.1 thou/uL (0.0-0.2); #Eosinphils 0.4 thou/uL (0.0-0.7); #Lymphocytes 2.1 thou/uL (1.20-3.40); #Monocytes 1.2 thou/uL (0.11-0.59); #Neutrophils 9.8 thou/uL (1.40-6.50); %Basophils 0.5 % (0.0-1.0); %Eosinophils 2.7 % (0.0-10.0); %Lymphocytes 15.5 % (21.0-51.0); %Monocytes 8.7 % (0.0-10.0); %Neutrophils 72.6 % (42.0-75.0); Hemoglobin 13.6 g/dL (12.0-16.0); Mean Corpuscular HGB CONC 31.9 g/dL (32.0-36.0); Mean Corpuscular Hemoglobin 28.3 pg (27.0-31.0); Mean Corpuscular Volume 88.7 fL (78.0-98.0); Mean Platelet Volume 9.4 fL (7.4-10.4); Platelet Count 241 thou/uL (130-400); RBC Distribution Width 12.2 % (11.5-14.5); Red Blood Cell (RBC) Count 4.81 mill/uL (4.20-5.40); White Blood Cell (WBC) Count 13.6 thou/uL (4.8-10.8)
[2018-07-19] MEDS: Insulin Glargine 100 UNIT/ML 3 ML PEN SQ SCH ×2 (08:40→20:21)
[2018-07-19] MEDS: Hydrochlorothiazide 25 MG TAB PO SCH (08:40)
[2018-07-19] MEDS: Polyethylene Glycol 3350 17 GM Packet PO SCH (08:40)
[2018-07-19] MEDS: guaiFENesin ER 600 MG TAB PO SCH ×2 (08:40→20:20)
[2018-07-19] MEDS: PARoxetine 20 MG TAB PO SCH (08:40)
[2018-07-19] MEDS: Alogliptin 25 MG TAB PO SCH (08:40)
[2018-07-19] MEDS: HumaLOG 300 UNITS/3 ML VIAL SC PRN ×3 (12:03→20:21)
[2018-07-19] MEDS: Amitriptyline HCl 25 MG TAB PO SCH (18:42)
[2018-07-19] MEDS: Simvastatin 40 MG TAB PO SCH (20:20)
--- NOTE | 2018-07-19 20:38 | PRG ---
DATE OF SERVICE: 07/19/2018 SUBJECTIVE: Ms. Lozoya is doing well. She apparently was able to feed herself this morning. She stood up for a while and sat in her chair for an hour. Her is in the room. No other concer ns or questions. OBJECTIVE: VITAL SIGNS: She is afebrile, heart rate is 79, respirations 16, oxygen saturation is 94% on room ai r, blood pressure 120/62. CARDIOVASCULAR SYSTEM: S1, S2 plus. RESPIRATORY SYSTEM: Normal vesicular breath sounds. ABDOMEN: Soft, nontender, bowel sounds heard in all quadrants. EXTREMITIES: Without cyanosis or clubbing. Abdominal incisions are healthy. LABORATORY VALUES: White count is slightly up at 13.6, H&H is 13.6 and 42.7. Blood sugars are 257, 154, 301, and 272. IMPRESSION: 1. Status post cholecystectomy for cholecystitis and sepsis. 2. Diabetes mellitus, type 2. 3. Hypertension. 4. Dyslipidemia. 5. Deconditioning. 6. Depression and anxiety. 7. Persistent leukocytosis. PLAN: 1. Check CBC in the morning along with a lactic acid level. Blood cultures and urine cultures has n ot had any fever. 2. She is still on her Levaquin for 5 more days. 3. Continue physical therapy. 4. Monitor blood sugar and adjust medications. 5. Nutritional support. 6. I discussed with patient and spouse in detail. All questions answered.
[2018-07-20 05:29] LABS: #Basophils 0.1 thou/uL (0.0-0.2); #Eosinphils 0.3 thou/uL (0.0-0.7); #Monocytes 1.1 thou/uL (0.11-0.59); #Neutrophils 8.4 thou/uL (1.40-6.50); %Basophils 0.6 % (0.0-1.0); %Eosinophils 2.6 % (0.0-10.0); %Lymphocytes 16.5 % (21.0-51.0); %Neutrophils 71.3 % (42.0-75.0); Mean Corpuscular HGB CONC 31.6 g/dL (32.0-36.0); Mean Corpuscular Hemoglobin 28.2 pg (27.0-31.0); Mean Corpuscular Volume 89.1 fL (78.0-98.0); Mean Platelet Volume 9.6 fL (7.4-10.4); Platelet Count 216 thou/uL (130-400); RBC Distribution Width 12.5 % (11.5-14.5); Red Blood Cell (RBC) Count 4.61 mill/uL (4.20-5.40); White Blood Cell (WBC) Count 11.8 thou/uL (4.8-10.8)
[2018-07-20 05:38] LABS: Anion Gap 13 mmol/L (10-20); BUN (Urea Nitrogen) 17 mg/dL (9.8-20.1); Calc. Creatinine Clearance 56 mL/min (70-130); Calcium 9.8 mg/dL (7.8-10.44); Carbon Dioxide 23 mmol/L (23-31); Chloride 101 mmol/L (98-107); Estimated GFR-MDRD 57; Glucose 288 mg/dL (83-110); Potassium 4.2 mmol/L (3.5-5.1); Sodium 133 mmol/L (136-145)
[2018-07-20] MEDS: HumaLOG 300 UNITS/3 ML VIAL SC PRN ×4 (05:44→20:28)
[2018-07-20] MEDS: Hydrochlorothiazide 25 MG TAB PO SCH (08:41)
[2018-07-20] MEDS: Alogliptin 25 MG TAB PO SCH (08:41)
[2018-07-20] MEDS: Insulin Glargine 100 UNIT/ML 3 ML PEN SQ SCH ×2 (08:42→20:29)
[2018-07-20] MEDS: guaiFENesin ER 600 MG TAB PO SCH ×2 (08:42→20:29)
[2018-07-20] MEDS: PARoxetine 20 MG TAB PO SCH (08:42)
[2018-07-20] MEDS: Polyethylene Glycol 3350 17 GM Packet PO SCH (08:43)
--- NOTE | 2018-07-20 09:50 | RAD ---
AP VIEW CHEST: HISTORY: Leukocytosis. FINDINGS: AP view chest is obtained on 07/20/18. Comparison is made to previous exam from 07/09/18. AP view chest demonstrates the lungs to be well aerated. No evidence of active intrathoracic disease is seen. No evidence of effusions, pneumonia, or pneumothorax seen. IMPRESSION: Unremarkable AP view chest. POS: [facility]
[2018-07-20] MEDS: Amitriptyline HCl 25 MG TAB PO SCH (18:23)
[2018-07-20] MEDS: Acetaminophen 500 MG TAB PO PRN (20:28)
[2018-07-20] MEDS: Simvastatin 40 MG TAB PO SCH (20:29)
[2018-07-21] MEDS: HumaLOG 300 UNITS/3 ML VIAL SC PRN ×4 (05:26→21:48)
[2018-07-21] MEDS: Insulin Glargine 100 UNIT/ML 3 ML PEN SQ SCH ×2 (08:24→21:41)
[2018-07-21] MEDS: guaiFENesin ER 600 MG TAB PO SCH ×2 (08:25→21:41)
[2018-07-21] MEDS: Polyethylene Glycol 3350 17 GM Packet PO SCH (08:25)
[2018-07-21] MEDS: Hydrochlorothiazide 25 MG TAB PO SCH (08:25)
[2018-07-21] MEDS: PARoxetine 20 MG TAB PO SCH (08:26)
[2018-07-21] MEDS: Alogliptin 25 MG TAB PO SCH (08:27)
--- NOTE | 2018-07-21 13:26 | PRG ---
DATE OF SERVICE: 07/21/2018 SUBJECTIVE: Ms. Lozoya is doing well. Denies any complaints, resting comfortably, looks much bet ter, feeding herself, apparently did better with therapy. Denies any fever, chills, chest pain or sh ortness of breath. Denies any nausea, vomiting, diarrhea. Her spouse is in the room. OBJECTIVE: VITAL SIGNS: She is afebrile, heart rate 79, respirations 16, oxygen saturation 98% on room air, blo od pressure 127/69. CARDIOVASCULAR: S1, S2 plus. RESPIRATORY SYSTEM: Normal vesicular breath sounds. ABDOMEN: Soft, nontender, bowel sounds heard in all quadrants. EXTREMITIES: Without cyanosis or clubbing. LABORATORY VALUES: White blood count is down to 11.8, H&H is 13 and 41. Sodium 133, potassium 4.2, BUN and creatinine 17 and 0.95, blood sugars are 256, 351, 261 and 345. Urinalysis is also unremarka ble. IMPRESSION: 1. Improving leukocytosis. 2. Resolved sepsis. 3. Cholecystitis, status post cholecystectomy. 4. Diabetes mellitus type 2. 5. Hypertension. 6. Dyslipidemia. 7. Deconditioning. PLAN: 1. Increase long-acting insulin. 2. Continue physical therapy. 3. 1800 calorie heart healthy diet. 4. DVT and stress ulcer prophylaxis. 5. Decubitus precautions. 6. Routine laboratory values. 7. I discussed with the patient and in detail. All questions answered.
[2018-07-21] MEDS: Amitriptyline HCl 25 MG TAB PO SCH (18:33)
[2018-07-21] MEDS: Simvastatin 40 MG TAB PO SCH (21:41)
[2018-07-22] MEDS: PARoxetine 20 MG TAB PO SCH (08:13)
[2018-07-22] MEDS: Alogliptin 25 MG TAB PO SCH (08:13)
[2018-07-22] MEDS: Insulin Glargine 100 UNIT/ML 3 ML PEN SQ SCH ×2 (08:13→20:37)
[2018-07-22] MEDS: Hydrochlorothiazide 25 MG TAB PO SCH (08:13)
[2018-07-22] MEDS: guaiFENesin ER 600 MG TAB PO SCH ×2 (08:13→20:35)
[2018-07-22] MEDS: Polyethylene Glycol 3350 17 GM Packet PO SCH (08:14)
--- NOTE | 2018-07-22 08:42 | PRG ---
DATE OF SERVICE: 07/22/2018 SUBJECTIVE: Ms. Lozoya is doing well. She apparently slept great last night according to her car egiver. She is just finishing up her breakfast. She also apparently forgot to give her incontinence medication to the nurses to be added to her medication list. I advised them that I will start it to day. It is to Myrbetriq 50 mg ER once daily. No other concerns or questions. OBJECTIVE: VITAL SIGNS: She is afebrile, heart rate 79, respirations 18, oxygen saturation 93% on room air, blo od pressure 115/62. CARDIOVASCULAR: S1, S2 plus. RESPIRATORY SYSTEM: Normal vesicular breath sounds. ABDOMEN: Soft, nontender, bowel sounds heard in all quadrants. EXTREMITIES: Without cyanosis or clubbing. LABORATORY VALUES: Blood sugars are 155, 328, 301, 315 and 115. Her long-acting insulin dose was in creased last night to 45 units b.i.d. IMPRESSION: 1. Improving leukocytosis. 2. Resolved cholecystitis after cholecystectomy. She is continuing on antibiotics. 3. Hypertension. 4. Dyslipidemia. 5. Depression and anxiety. 6. Significant deconditioning. 7. History of brain tumor removal. I think it was a meningioma. PLAN: 1. Continue current medications. 2. Nutritional support. 3. Resume Myrbetriq. 4. DVT and stress ulcer prophylaxis. 5. Decubitus precautions. 6. Continue physical therapy. 7. Routine laboratory values. 8. Continue to monitor blood sugars and adjust medications. 9. I discussed with the patient and backup sawyer as well as nursing in detail and all questions answerblank huber
[2018-07-22] MEDS: HumaLOG 300 UNITS/3 ML VIAL SC PRN ×3 (11:53→20:36)
[2018-07-22] MEDS: Nystatin Powder 15 GM BOT TOP SCH ×2 (13:34→21:13)
[2018-07-22] MEDS: Amitriptyline HCl 25 MG TAB PO SCH (18:09)
[2018-07-22] MEDS: Simvastatin 40 MG TAB PO SCH (20:35)
[2018-07-22] MEDS: Acetaminophen 500 MG TAB PO PRN (20:35)
--- NOTE | 2018-07-23 08:20 | PRG ---
DATE OF SERVICE: 07/23/2018 DATE OF ADMISSION: 07/14/2018 SUBJECTIVE: Ms. Lozoya is a very pleasant 73-year-old white female, who presented to the ER at [facility] with UTI and sepsis. Also, was found to have cholecystitis. Dr. Song did a enriqueta cystectomy on her, and postoperatively, she was transferred here for physical therapy and occupationa l therapy. She also had some confusion while she was there. Today, the patient states she is doing well. We did go over all of her sugars, and generally, they h ave been running still a little bit high. Yesterday, 171, 237, 380; this morning her fasting is 150. We will increase her from 45-48 units b.i.d. Lantus. Continue to watch her sugars closely. OBJECTIVE: VITAL SIGNS: Today, reveal blood pressure 115/63, pulse 79-101, respirations 18-22, O2 sat to 93%-95 %, T-max 98.9. HEENT: Reveals normocephalic, nontraumatic cranium. Pupils are equally round and reactive. Extraoc ular movements intact. Nose and throat are slightly dry. NECK: Supple, without mass, nodes, or bruits. CHEST: Clear to auscultation, no rales, rhonchi, wheezes, or cough is noted. HEART: Reveals a regular rate and rhythm without murmurs, gallops, or rubs. ABDOMEN: Soft, nontender, slightly obese. Normal bowel sounds are heard in all 4 quadrants. No maura ound or guarding is noted. EXAM: Deferred. EXTREMITIES: Reveal no clubbing, cyanosis, or edema. IMPRESSION: 1. Resolved cholecystitis after cholecystectomy. 2. Hypertension. 3. Hyperlipidemia. 4. Anxiety/depressive disorder. 5. Significant deconditioning. 6. History of brain tumor in the distant past. PLAN: 1. Continue present meds. 2. Increase her Lantus to 48 units b.i.d. 3. Continue Myrbetriq. 4. DVT and stress ulcer prophylaxis. 5. Decubitus precautions. 6. Continue physical therapy and occupational therapy. 7. Out of bed as much as possible today. 8. Continue to monitor the patient's blood sugars a.c. and at bedtime.
[2018-07-23] MEDS: Hydrochlorothiazide 25 MG TAB PO SCH (08:55)
[2018-07-23] MEDS: Alogliptin 25 MG TAB PO SCH (08:55)
[2018-07-23] MEDS: guaiFENesin ER 600 MG TAB PO SCH ×2 (08:55→20:27)
[2018-07-23] MEDS: Nystatin Powder 15 GM BOT TOP SCH ×3 (08:56→20:27)
[2018-07-23] MEDS: Insulin Glargine 100 UNIT/ML 3 ML PEN SQ SCH ×2 (08:56→20:28)
[2018-07-23] MEDS: Polyethylene Glycol 3350 17 GM Packet PO SCH (08:57)
[2018-07-23] MEDS: PARoxetine 20 MG TAB PO SCH (08:57)
[2018-07-23] MEDS: HumaLOG 300 UNITS/3 ML VIAL SC PRN ×3 (11:54→20:31)
[2018-07-23] MEDS: Amitriptyline HCl 25 MG TAB PO SCH (18:25)
[2018-07-23] MEDS: Simvastatin 40 MG TAB PO SCH (20:27)
[2018-07-24] MEDS: HumaLOG 300 UNITS/3 ML VIAL SC PRN ×4 (06:11→20:52)
--- NOTE | 2018-07-24 09:14 | PRG ---
DATE OF SERVICE: 07/24/2018 DATE OF ADMISSION: 07/14/2018 HISTORY OF PRESENT ILLNESS: Ms. Lozoya is a very pleasant 73-year-old female admitted to [facility] with diagnosis of UTI and sepsis. She is also f ound to have cholecystitis and cholecystectomy and postoperatively, she was transferred here for PT a nd OT. Patient's sugars are slightly better. Yesterday sugars were 150, 185, 247, 296. PHYSICAL EXAMINATION: VITAL SIGNS: Today reveal blood pressure 120/68, pulse 75-97, respirations 16-20, O2 sat 93%-94% on room air, T-max 99.1. Sugar this morning was 221. We did increase her insulin from 48 units b.i.d. to 50 units b.i.d. GENERAL: This is a well-developed, well-nourished, very pleasant white female in no apparent distres s at this time. HEENT: Reveals normocephalic, nontraumatic cranium. Pupils are equal, round, and reactive. Extraoc ular movements are intact. Nose and throat are slightly dry, but clear. NECK: Supple, without mass, nodes, bruits. CHEST: Clear to auscultation. No rales, rhonchi or wheezes are heard. HEART: Reveals a regular rate and rhythm without murmurs, gallops or rubs. ABDOMEN: Soft, nontender, without organomegaly, normal bowel sounds are noted. No rebound or guardi ng is noted. : Deferred. EXTREMITIES: Reveal no clubbing, cyanosis or edema. IMPRESSION: 1. Resolved cholecystitis after cholecystectomy. 2. Hypertension. 3. Hyperlipidemia. 4. Diabetes slowly better controlled. 5. Anxiety depressive disorder. 6. Significant deconditioning. 7. History of brain tumor in the distant past. PLAN: 1. Increase Lantus to 50 units subcutaneous b.i.d. 2. Continue Myrbetriq. 3. DVT and stress ulcer prophylaxis. 4. Decubitus precautions. 5. Continue PT and OT. 6. Out of bed as much as possible. 7. Continue to monitor the patient's blood sugars a.c. and at bedtime.
[2018-07-24] MEDS: Insulin Glargine 100 UNIT/ML 3 ML PEN SQ SCH ×2 (09:23→20:47)
[2018-07-24] MEDS: Hydrochlorothiazide 25 MG TAB PO SCH (09:23)
[2018-07-24] MEDS: Alogliptin 25 MG TAB PO SCH (09:23)
[2018-07-24] MEDS: Nystatin Powder 15 GM BOT TOP SCH ×3 (09:23→20:46)
[2018-07-24] MEDS: guaiFENesin ER 600 MG TAB PO SCH ×2 (09:23→20:46)
[2018-07-24] MEDS: PARoxetine 20 MG TAB PO SCH (09:24)
[2018-07-24] MEDS: Polyethylene Glycol 3350 17 GM Packet PO SCH (09:24)
[2018-07-24] MEDS: Amitriptyline HCl 25 MG TAB PO SCH (18:22)
[2018-07-24] MEDS: Simvastatin 40 MG TAB PO SCH (20:46)
[2018-07-24] MEDS: Acetaminophen 500 MG TAB PO PRN (20:47)
[2018-07-25] MEDS: Polyethylene Glycol 3350 17 GM Packet PO SCH (08:59)
[2018-07-25] MEDS: PARoxetine 20 MG TAB PO SCH (08:59)
[2018-07-25] MEDS: Insulin Glargine 100 UNIT/ML 3 ML PEN SQ SCH ×2 (09:00→20:23)
[2018-07-25] MEDS: Alogliptin 25 MG TAB PO SCH (09:00)
[2018-07-25] MEDS: guaiFENesin ER 600 MG TAB PO SCH ×2 (09:00→20:23)
[2018-07-25] MEDS: Nystatin Powder 15 GM BOT TOP SCH ×3 (09:00→20:24)
[2018-07-25] MEDS: Hydrochlorothiazide 25 MG TAB PO SCH (09:00)
[2018-07-25] MEDS: HumaLOG 300 UNITS/3 ML VIAL SC PRN ×2 (12:07→16:37)
[2018-07-25] MEDS: Acetaminophen 500 MG TAB PO PRN (14:40)
[2018-07-25] MEDS: Amitriptyline HCl 25 MG TAB PO SCH (18:28)
[2018-07-25] MEDS: Simvastatin 40 MG TAB PO SCH (20:24)
[2018-07-26] MEDS: Insulin Glargine 100 UNIT/ML 3 ML PEN SQ SCH ×2 (08:34→20:49)
[2018-07-26] MEDS: Alogliptin 25 MG TAB PO SCH (08:34)
[2018-07-26] MEDS: guaiFENesin ER 600 MG TAB PO SCH ×2 (08:34→20:48)
[2018-07-26] MEDS: PARoxetine 20 MG TAB PO SCH (08:34)
[2018-07-26] MEDS: Polyethylene Glycol 3350 17 GM Packet PO SCH ×2 (08:34→12:42)
[2018-07-26] MEDS: Nystatin Powder 15 GM BOT TOP SCH ×3 (08:34→20:49)
[2018-07-26] MEDS: Hydrochlorothiazide 25 MG TAB PO SCH (08:34)
[2018-07-26] MEDS: HumaLOG 300 UNITS/3 ML VIAL SC PRN ×3 (12:19→21:00)
--- NOTE | 2018-07-26 13:23 | PRG ---
DATE OF SERVICE: 07/25/2018 SUBJECTIVE: Ms. Lozoya is doing well. She ate a good breakfast, did not do very well with lunch because she could not chew the meat. Her caregiver is in the room. Spouse is not in the room and no concerns or questions. Discussed with nursing. OBJECTIVE: VITAL SIGNS: She is afebrile, heart rate is 79, respirations 18, oxygen saturation 96% on room air, blood pressure 119/56. CARDIOVASCULAR: S1, S2 plus. RESPIRATORY SYSTEM: Normal vesicular breath sounds. ABDOMEN: Soft, nontender, bowel sounds heard in all quadrants. EXTREMITIES: Without cyanosis or clubbing. Peripheral pulses are palpable. CENTRAL NERVOUS SYSTEM: Improving deconditioning. LABORATORY VALUES: Blood sugars are 273, 145, 324. IMPRESSION: 1. Diabetes mellitus type 2, not well controlled. 2. Hypertension. 3. Dyslipidemia. 4. Depression and anxiety. 5. Recent cholecystectomy. 6. Improving deconditioning. 7. Possible early dementia. 8. History of brain tumor resection. PLAN: 1. Continue to adjust blood sugars. 2. A 1800 calorie Heart healthy ADA diet. 3. Accu-Cheks with sliding scale coverage. 4. Deep venous thrombosis and stress ulcer prophylaxis. 5. Decubitus precautions. 6. Routine laboratory values. 7. Discussed with patient and caregiver in detail. All questions answered. SUREKHAD
--- NOTE | 2018-07-26 13:28 | PRG ---
DATE OF SERVICE: 07/26/2018 SUBJECTIVE: Ms. Lozoya is doing well. She just finished her shower, she is noticing some itching mainly at night. She did eat well. She is back on her Myrbetriq and that seems to be helping. Her caregiver is in the room and no concerns. OBJECTIVE: VITAL SIGNS: She is afebrile, heart rate is 81, respirations 18, oxygen saturation 94% on room air, blood pressure 119/59. CARDIOVASCULAR: S1, S2 plus. RESPIRATORY: Normal vesicular breath sounds. ABDOMEN: Soft, nontender, bowel sounds heard in all quadrants. EXTREMITIES: Without cyanosis or clubbing. CENTRAL NERVOUS SYSTEM: Improving deconditioning. LABORATORY VALUES: Blood sugars are 152, 151, 134 and 195. IMPRESSION: 1. Diabetes mellitus type 2, much improved. 2. Hypertension, well controlled. 3. Dyslipidemia. 4. Depression and anxiety. 5. Improving deconditioning. 6. History of a brain tumor removal. 7. Degenerative disk disease of the lumbar spine. 8. Mild dementia. PLAN: 1. Continue current medications. 2. Nutritional support. 3. Deep venous thrombosis and stress ulcer prophylaxis. 4. Decubitus precautions. 5. Accu-Cheks to sliding scale coverage. 6. Continue physical therapy and occupational therapy. 7. I advised caregiver to use a good moisturizing lotion right after her shower. 8. Recheck laboratory values in the morning.
[2018-07-26 14:30] LABS: Anion Gap 14 mmol/L (10-20); BUN (Urea Nitrogen) 18 mg/dL (9.8-20.1); Calc. Creatinine Clearance 52 mL/min (70-130); Calcium 10.6 mg/dL (7.8-10.44); Carbon Dioxide 24 mmol/L (23-31); Chloride 101 mmol/L (98-107); Estimated GFR-MDRD 53; Glucose 216 mg/dL (83-110); Potassium 4.2 mmol/L (3.5-5.1); Sodium 135 mmol/L (136-145)
[2018-07-26] MEDS: Amitriptyline HCl 25 MG TAB PO SCH (18:16)
[2018-07-26] MEDS: Simvastatin 40 MG TAB PO SCH (20:49)
[2018-07-27] MEDS: HumaLOG 300 UNITS/3 ML VIAL SC PRN ×3 (05:26→17:04)
[2018-07-27 05:34] LABS: #Basophils 0.1 thou/uL (0.0-0.2); #Eosinphils 0.2 thou/uL (0.0-0.7); #Lymphocytes 1.7 thou/uL (1.20-3.40); #Monocytes 0.6 thou/uL (0.11-0.59); #Neutrophils 5.6 thou/uL (1.40-6.50); %Basophils 0.6 % (0.0-1.0); %Eosinophils 2.8 % (0.0-10.0); %Lymphocytes 20.8 % (21.0-51.0); %Monocytes 7.6 % (0.0-10.0); %Neutrophils 68.1 % (42.0-75.0); Mean Corpuscular HGB CONC 31.1 g/dL (32.0-36.0); Mean Corpuscular Hemoglobin 27.7 pg (27.0-31.0); Mean Corpuscular Volume 89.3 fL (78.0-98.0); Mean Platelet Volume 9.6 fL (7.4-10.4); Platelet Count 252 thou/uL (130-400); RBC Distribution Width 12.2 % (11.5-14.5); Red Blood Cell (RBC) Count 4.69 mill/uL (4.20-5.40); White Blood Cell (WBC) Count 8.2 thou/uL (4.8-10.8)
[2018-07-27] MEDS: Alogliptin 25 MG TAB PO SCH (09:08)
[2018-07-27] MEDS: Hydrochlorothiazide 25 MG TAB PO SCH (09:08)
[2018-07-27] MEDS: Insulin Glargine 100 UNIT/ML 3 ML PEN SQ SCH ×2 (09:08→19:26)
[2018-07-27] MEDS: guaiFENesin ER 600 MG TAB PO SCH ×2 (09:08→19:26)
[2018-07-27] MEDS: PARoxetine 20 MG TAB PO SCH (09:09)
[2018-07-27] MEDS: Polyethylene Glycol 3350 17 GM Packet PO SCH (09:10)
[2018-07-27] MEDS: Nystatin Powder 15 GM BOT TOP SCH ×3 (09:10→19:26)
--- NOTE | 2018-07-27 16:20 | PRG ---
DATE OF SERVICE: 07/27/2018. SUBJECTIVE: Ms. Lozoya is doing the same. She remains pleasantly confused, but she is tolerating her therapy. She states that she fell twice, but her glazier metal furniture states that there was no fall. She is tolerating her diet. Discussed with nursing and no concerns. OBJECTIVE: VITAL SIGNS: She is afebrile, heart rate 75, respirations 18, oxygen saturation 95% on room air, blo od pressure 127/58. CARDIOVASCULAR: S1, S2. RESPIRATORY SYSTEM: Normal vesicular breath sounds. ABDOMEN: Soft, nontender, bowel sounds heard in all quadrants. EXTREMITIES: Without cyanosis or clubbing. Peripheral pulses are palpable. CENTRAL NERVOUS SYSTEM: Grossly nonfocal. LABORATORY VALUES: White count is 8.2, H and H is 13 and 41.9. Sodium 135, potassium 4.2, BUN and c reatinine is 18 and 1.01. Blood sugars are 209, 239, weight 182 and 293. IMPRESSION: 1. Diabetes mellitus type 2, much improved. 2. Hypertension. 3. Dyslipidemia. 4. Depression and anxiety. 5. Status post cholecystectomy. 6. Mild dementia. PLAN: 1. Trial of Aricept 5 mg daily. 2. Continue physical therapy. 3. 1800 calorie heart healthy diet. 4. DVT and stress ulcer prophylaxis. 5. Decubitus precautions. 6. Routine laboratory values.
[2018-07-27] MEDS: Donepezil HCl 5 MG TAB PO SCH (19:25)
[2018-07-27] MEDS: Amitriptyline HCl 25 MG TAB PO SCH (19:25)
[2018-07-27] MEDS: Simvastatin 40 MG TAB PO SCH (19:27)
[2018-07-28] MEDS: HumaLOG 300 UNITS/3 ML VIAL SC PRN ×2 (05:22→12:39)
[2018-07-28] MEDS: guaiFENesin ER 600 MG TAB PO SCH ×2 (08:52→19:21)
[2018-07-28] MEDS: Alogliptin 25 MG TAB PO SCH (08:52)
[2018-07-28] MEDS: Hydrochlorothiazide 25 MG TAB PO SCH (08:53)
[2018-07-28] MEDS: Insulin Glargine 100 UNIT/ML 3 ML PEN SQ SCH ×2 (08:53→19:21)
[2018-07-28] MEDS: Nystatin Powder 15 GM BOT TOP SCH ×3 (08:54→19:27)
[2018-07-28] MEDS: Polyethylene Glycol 3350 17 GM Packet PO SCH (08:54)
[2018-07-28] MEDS: PARoxetine 20 MG TAB PO SCH (08:54)
[2018-07-28] MEDS: Acetaminophen 500 MG TAB PO PRN ×2 (12:39→21:39)
[2018-07-28] MEDS: Simvastatin 40 MG TAB PO SCH (19:20)
[2018-07-28] MEDS: Amitriptyline HCl 25 MG TAB PO SCH (19:21)
[2018-07-28] MEDS: Donepezil HCl 5 MG TAB PO SCH (19:21)
--- NOTE | 2018-07-28 20:46 | PRG ---
DATE OF SERVICE: 07/28/2018 SUBJECTIVE: Ms. Lozoya is doing well. She is complaining of some right flank pain. Denies any u rinary symptoms. Denies any fever or chills. She is tender to palpation. No bruising or erythema o n the skin, caregiver is in the room. OBJECTIVE: VITAL SIGNS: She is afebrile, heart rate is 75, respirations 16, oxygen saturation 95% on room air, blood pressure 113/60. CARDIOVASCULAR: S1, S2 plus. RESPIRATORY SYSTEM: Normal vesicular breath sounds. ABDOMEN: Soft, nontender, bowel sounds heard in all quadrants. EXTREMITIES: Without cyanosis or clubbing. CENTRAL NERVOUS SYSTEM: Improving deconditioning. IMPRESSION: 1. Right flank pain, likely musculoskeletal, possibly from assisting her to be moving as well as wit h her therapy. Tylenol, seems to be helping. We will continue Tylenol. 2. Diabetes mellitus type 2. 3. Hypertension. 4. Dyslipidemia. 5. Interval cognitive deficits likely multifactorial. PLAN: 1. Continue current medications. 2. 1800 calorie heart healthy ADA diet. Blood sugars have been pretty good 204, 205, 233, and 141. 3. Continue physical therapy. 4. Discharge planning. I had a long discussion with her nephew and Darell, and we are going to m eet again on Wednesday. Her is not in the room. Continue physical therapy and Tylenol. 5. DVT and stress ulcer prophylaxis.
[2018-07-29] MEDS: Alogliptin 25 MG TAB PO SCH (09:14)
--- NOTE | 2018-07-29 09:23 | PRG ---
DATE OF SERVICE: 07/29/2018 SUBJECTIVE: Ms. Lozoya is doing well. She apparently ate a good breakfast. She continues to hav e some right flank pain. She denies any fever, chills, chest pain or shortness of breath. Discussed with therapy and she apparently needs 2 people to help her get out of bed. They feel that if she go es home, she needs to either have 2 providers at all times or a provider and a Quan lift. I am chencho talamantes to meet with the and nephew on Wednesday to discuss the discharge plan. OBJECTIVE: VITAL SIGNS: She is afebrile, heart rate 72, respirations 20, oxygen saturation 93%, blood pressure 120/59. CARDIOVASCULAR: S1, S2 plus. RESPIRATORY SYSTEM: Normal vesicular breath sounds. ABDOMEN: Soft, nontender, bowel sounds heard in all quadrants. EXTREMITIES: Without cyanosis or clubbing. CENTRAL NERVOUS SYSTEM: Generalized weakness. LABORATORY VALUES: Shows good blood sugars of 233, 141, 202 and 140. IMPRESSION: 1. Diabetes mellitus type 2. 2. Hypertension. 3. Dyslipidemia. 4. Cognitive deficits. 5. Anxiety and depression. PLAN: 1. Continue current medications. 2. Nutritional support. 3. DVT and stress ulcer prophylaxis. 4. Decubitus precautions. 5. Family discussion on Wednesday. 6. Continue therapy. 7. Tylenol p.r.n.
[2018-07-29] MEDS: Insulin Glargine 100 UNIT/ML 3 ML PEN SQ SCH ×2 (09:41→19:38)
[2018-07-29] MEDS: Polyethylene Glycol 3350 17 GM Packet PO SCH (09:44)
[2018-07-29] MEDS: PARoxetine 20 MG TAB PO SCH (09:45)
[2018-07-29] MEDS: guaiFENesin ER 600 MG TAB PO SCH ×2 (09:45→19:38)
[2018-07-29] MEDS: Hydrochlorothiazide 25 MG TAB PO SCH (09:47)
[2018-07-29] MEDS: Nystatin Powder 15 GM BOT TOP SCH ×3 (10:12→19:45)
[2018-07-29] MEDS: HumaLOG 300 UNITS/3 ML VIAL SC PRN (17:53)
[2018-07-29] MEDS: Amitriptyline HCl 25 MG TAB PO SCH (19:38)
[2018-07-29] MEDS: Simvastatin 40 MG TAB PO SCH (19:38)
[2018-07-29] MEDS: Donepezil HCl 5 MG TAB PO SCH (19:38)
[2018-07-30] MEDS: PARoxetine 20 MG TAB PO SCH (08:59)
[2018-07-30] MEDS: Hydrochlorothiazide 25 MG TAB PO SCH (08:59)
[2018-07-30] MEDS: Alogliptin 25 MG TAB PO SCH (08:59)
[2018-07-30] MEDS: Insulin Glargine 100 UNIT/ML 3 ML PEN SQ SCH ×2 (09:00→20:14)
[2018-07-30] MEDS: guaiFENesin ER 600 MG TAB PO SCH ×2 (09:00→20:10)
[2018-07-30] MEDS: Nystatin Powder 15 GM BOT TOP SCH ×3 (09:00→20:10)
[2018-07-30] MEDS: Polyethylene Glycol 3350 17 GM Packet PO SCH (09:01)
[2018-07-30] MEDS: HumaLOG 300 UNITS/3 ML VIAL SC PRN ×2 (11:22→17:01)
--- NOTE | 2018-07-30 13:45 | PRG ---
DATE OF SERVICE: 07/30/2018 SUBJECTIVE: Ms. Lozoya is doing well. Her right flank pain has resolved. Her main concern now i s itching in her back that had resolved with applying some diaper rash powder. I advised her that th e main reason itching is that she is leaning back either in the chair or on the bed at all times and there is really not any circulation to the skin. She said she will try to sit up. Her nephew is in the room. She still remains confused. She knows that she is in the hospital. She knows this is [facility]. She does not know the year. She is able to recognize me. OBJECTIVE: VITAL SIGNS: She is afebrile, heart rate 81, respirations 18, oxygen saturation 94% on room air, blo od pressure 111/59. CARDIOVASCULAR SYSTEM: S1, S2 plus. RESPIRATORY SYSTEM: Normal vesicular breath sounds. ABDOMEN: Soft, nontender, bowel sounds heard in all quadrants. EXTREMITIES: Without cyanosis or clubbing. CENTRAL NERVOUS SYSTEM: Improving deconditioning. LABORATORY VALUES: Blood sugars are 220, 246, 185, 142 and 361. IMPRESSION: 1. Diabetes mellitus type 2. 2. Hypertension. 3. Dyslipidemia. 4. Anxiety and depression. 5. Cognitive deficits. 6. Improving deconditioning. PLAN: 1. Continue current medications. 2. A 1800 calorie heart healthy ADA diet. 3. DVT and stress ulcer prophylaxis. 4. Decubitus precautions. 5. Encourage the patient to sit up and not to put constant pressure on her back. 6. Family conference tomorrow to decide on discharge planning. 7. Continue to monitor blood sugars. 8. I discussed with the patient and nephew, all questions answered.
[2018-07-30] MEDS: Amitriptyline HCl 25 MG TAB PO SCH (18:26)
[2018-07-30] MEDS: Simvastatin 40 MG TAB PO SCH (20:09)
[2018-07-30] MEDS: Donepezil HCl 5 MG TAB PO SCH (20:10)
[2018-07-31 05:35] LABS: #Eosinphils 0.3 thou/uL (0.0-0.7); #Lymphocytes 2.1 thou/uL (1.20-3.40); #Monocytes 0.5 thou/uL (0.11-0.59); %Basophils 0.6 % (0.0-1.0); %Eosinophils 3.2 % (0.0-10.0); %Lymphocytes 26.8 % (21.0-51.0); %Monocytes 6.8 % (0.0-10.0); %Neutrophils 62.7 % (42.0-75.0); Hemoglobin 13.3 g/dL (12.0-16.0); Mean Corpuscular HGB CONC 31.7 g/dL (32.0-36.0); Mean Corpuscular Volume 88.4 fL (78.0-98.0); Mean Platelet Volume 9.7 fL (7.4-10.4); Platelet Count 216 thou/uL (130-400); RBC Distribution Width 12.2 % (11.5-14.5); Red Blood Cell (RBC) Count 4.77 mill/uL (4.20-5.40)
[2018-07-31 05:38] LABS: Anion Gap 15 mmol/L (10-20); BUN (Urea Nitrogen) 12 mg/dL (9.8-20.1); Calc. Creatinine Clearance 62 mL/min (70-130); Calcium 9.9 mg/dL (7.8-10.44); Carbon Dioxide 24 mmol/L (23-31); Chloride 105 mmol/L (98-107); Estimated GFR-MDRD 65; Glucose 168 mg/dL (83-110); Potassium 4.6 mmol/L (3.5-5.1); Sodium 139 mmol/L (136-145)
[2018-07-31] MEDS: guaiFENesin ER 600 MG TAB PO SCH ×2 (08:43→19:45)
[2018-07-31] MEDS: Insulin Glargine 100 UNIT/ML 3 ML PEN SQ SCH ×2 (08:44→19:45)
[2018-07-31] MEDS: Hydrochlorothiazide 25 MG TAB PO SCH (08:44)
[2018-07-31] MEDS: Alogliptin 25 MG TAB PO SCH (08:44)
[2018-07-31] MEDS: Polyethylene Glycol 3350 17 GM Packet PO SCH (08:44)
[2018-07-31] MEDS: PARoxetine 20 MG TAB PO SCH (08:44)
[2018-07-31] MEDS: Nystatin Powder 15 GM BOT TOP SCH ×3 (08:45→19:58)
[2018-07-31] MEDS: HumaLOG 300 UNITS/3 ML VIAL SC PRN ×3 (11:28→19:49)
--- NOTE | 2018-07-31 13:08 | PRG ---
DATE OF SERVICE: 07/31/2018 SUBJECTIVE: Ms. Lozoya is doing the same. Denies any concerns, up in her chair, eating lunch. H er , her nephew and one other family member is in the room. We had a family meeting discussin g her discharge plans. was made aware that she needs at least 2 providers at home at all ting es. This was recommended by the therapy. She also would benefit from a hospital bed. The other opt ion [facility], as even if she goes to an assisted living facility, she will ne ed a lot of help. wants to take her home, so I have written orders for hospital bed, a Quan lift and for home health. Family is going to start looking for another provider. They already have 1 provider. They are going to get for another provider. They know that she needs two providers ally und the clock. Anticipated discharge date as soon as everything is arranged. She is tolerating her Aricept and denies any concerns or questions. OBJECTIVE: VITAL SIGNS: She is afebrile, heart rate is 89, respirations 18, oxygen saturation 92% on room air, blood pressure 109/58. CARDIOVASCULAR: S1, S2 plus. RESPIRATORY SYSTEM: Normal vesicular breath sounds. ABDOMEN: Soft, nontender, bowel sounds heard in all quadrants. EXTREMITIES: Without cyanosis or clubbing. CENTRAL NERVOUS SYSTEM: Generalized weakness, mild cognitive deficits. LABORATORY VALUES: Sodium 139, potassium 4.6, BUN and creatinine are 12 and 0.85. Blood sugars are 204, 168, 154 and 228. Blood count shows a white count of 8, H&H is 13.3 and 42.1. IMPRESSION: 1. Resolved sepsis from her cholecystitis. 2. Diabetes mellitus type 2, well controlled. 3. Hypertension. 4. Dyslipidemia. 5. Anxiety and depression. 6. Cognitive deficits likely due to the brain tumor excision and possible dementia. PLAN: 1. Continue current medications. 2. Discharge planning. 3. Orders written for hospital bed, Quan lift and Home Health. 4. Family to arrange for providers. 5. Continue therapy here. 6. Nutritional support. 7. Monitor blood sugars.
[2018-07-31] MEDS: Amitriptyline HCl 25 MG TAB PO SCH (18:14)
[2018-07-31] MEDS: Donepezil HCl 5 MG TAB PO SCH (19:45)
[2018-07-31] MEDS: Simvastatin 40 MG TAB PO SCH (19:45)
[2018-08-01] MEDS: HumaLOG 300 UNITS/3 ML VIAL SC PRN ×3 (06:40→20:27)
[2018-08-01] MEDS: guaiFENesin ER 600 MG TAB PO SCH ×2 (08:22→20:26)
[2018-08-01] MEDS: Alogliptin 25 MG TAB PO SCH (08:22)
[2018-08-01] MEDS: Insulin Glargine 100 UNIT/ML 3 ML PEN SQ SCH ×2 (08:23→20:27)
[2018-08-01] MEDS: Hydrochlorothiazide 25 MG TAB PO SCH (08:23)
[2018-08-01] MEDS: PARoxetine 20 MG TAB PO SCH (08:23)
[2018-08-01] MEDS: Polyethylene Glycol 3350 17 GM Packet PO SCH (08:24)
[2018-08-01] MEDS: Nystatin Powder 15 GM BOT TOP SCH ×2 (08:29→14:32)
[2018-08-01] MEDS: Donepezil HCl 5 MG TAB PO SCH (20:26)
[2018-08-01] MEDS: Amitriptyline HCl 25 MG TAB PO SCH ×2 (20:26)
[2018-08-01] MEDS ORDERED: diphenhydrAMINE 25 MG CAP PO SCH (21:15)
[2018-08-01] MEDS: Simvastatin 40 MG TAB PO SCH (21:36)
--- NOTE | 2018-08-01 22:37 | DIS ---
DATE OF ADMISSION: 07/14/2018 DATE OF DISCHARGE: 08/01/2018 PRINCIPAL DIAGNOSIS: Status post cholecystitis and cholecystectomy for deconditioning for therapy. SECONDARY DIAGNOSES: 1. Cognitive deficits, likely multifactorial. 2. Diabetes mellitus, type 2. 3. Dyslipidemia. 4. Brain tumor, status post removal. 5. Degenerative disk disease of the lumbar spine. 6. Hypertension. 7. Anxiety and depression. COMPLICATIONS: None. ADVERSE REACTIONS: None. PROCEDURES: None. CONSULTATIONS: None. HOSPITAL COURSE: The patient was admitted for physical therapy and occupational therapy. She was al so noticed to have significantly high blood sugars and normally she takes Lantus 70 units at night an d she was only on 10 units. This was slowly advanced and currently she is on 48 units b.i.d. and for the most part, her blood sugars are below 200. She is tolerating her diet. She is still not doing a whole lot with therapy. Therapy feels that she definitely is not safe to go home, and the family h as decided to try long term facility at [facility] to see how she does. Juan parson will be under the care of the director medical affairs there. I had made arrangements for her to have some home DME, which the nurses are going to cancel since family has decided to take her to the nursing [facility]. PHYSICAL EXAMINATION: VITAL SIGNS: On the day of discharge, she is afebrile, heart rate 78, respirations 18, oxygen satura tion 93% on room air, blood pressure 112/63. CARDIOVASCULAR: S1, S2 plus. RESPIRATORY: Normal vesicular breath sounds. ABDOMEN: Soft, nontender, bowel sounds heard in all quadrants. EXTREMITIES: Without cyanosis or clubbing. CENTRAL NERVOUS SYSTEM: Mild cognitive impairment, still with significant weakness and coordination issues. DISCHARGE MEDICATIONS: 1. Tylenol 500 mg q.6 p.r.n. 2. Proventil HFA 2 puffs q.6. p.r.n. 3. She is on alogliptin here 25 mg daily. 4. Elavil 25 mg at bedtime. 5. Aricept 5 mg daily. 6. Glipizide 2.5 mg b.i.d. 7. Mucinex 600 mg b.i.d. which will be discontinued. 8. Hydrochlorothiazide 12.5 mg daily. 9. Lantus 48 units subcu b.i.d., sliding scale coverage with short-acting insulin. 10. Paxil 40 mg daily. 11. MiraLax 17 g in 8-ounce of water daily. 12. Zocor 80 mg daily. 13. Tramadol will be discontinued. DISCHARGE INSTRUCTIONS: 1. An 1800-calorie heart healthy ADA diet. 2. PT/OT eval and treat. 3. She will be followed by, like I said, the director medical affairs. 4. Family is to call me with any questions or concerns.
[2018-08-02 07:16] VITALS: BP 123/58; TEMP 98.2
[2018-08-02] MEDS: PARoxetine 20 MG TAB PO SCH (08:36)
[2018-08-02] MEDS: Polyethylene Glycol 3350 17 GM Packet PO SCH (08:36)
[2018-08-02] MEDS: Alogliptin 25 MG TAB PO SCH (08:36)
[2018-08-02] MEDS: Insulin Glargine 100 UNIT/ML 3 ML PEN SQ SCH (08:36)
[2018-08-02] MEDS: guaiFENesin ER 600 MG TAB PO SCH (08:36)
[2018-08-02] MEDS: Hydrochlorothiazide 25 MG TAB PO SCH (08:36)
[2018-08-02] MEDS: HumaLOG 300 UNITS/3 ML VIAL SC PRN (11:23)
--- NOTE | 2018-08-03 07:29 | ADD-DIS ---
ADDENDUM DATE OF ADMISSION: 07/14/2018 DATE OF DISCHARGE: 08/02/2018 Ms. Lozoya was supposed to be discharged yesterday, but family was not able to complete her paperw ork at the nursing facility, so she was kept overnight. She has done well and no further issues. No new issues. All the paperwork has been done and she is being discharged to the correction today. PHYSICAL EXAMINATION: VITAL SIGNS: She is afebrile, heart rate 72, respirations 18, oxygen saturation 95% on room air, blo od pressure 123/58. CARDIOVASCULAR SYSTEM: S1, S2 plus rate and rhythm regular. RESPIRATORY SYSTEM: Vesicular breath sounds in all lung andres. ABDOMEN: Soft, nontender, bowel sounds heard in all quadrants. EXTREMITIES: Without cyanosis or clubbing. Blood sugars are 144, 265, 94 and 277. She will be followed by Dr. Johnny Baker up at the [facility]. Family is aware. DIET: An 1800-calorie heart healthy ADA diet. ACTIVITY: As tolerated. Continue PT and OT. Family is to call me with any questions or concerns. For other details, please see the discharge sum fernie from yesterday.
== END 2018-08-02 12:37 | DRG 948 ==
LOC: NAV ACUTE 16:34
PROVIDERS: ADMIT Internal Medicine; ATTEND Internal Medicine
DX: R53.1 Weakness (principal); R41.89 Other symptoms and signs involving cognitive functions and awareness; E78.5 Hyperlipidemia, unspecified; M51.36 Other intervertebral disc degeneration, lumbar region; I10 Essential (primary) hypertension; F32.9 Major depressive disorder, single episode, unspecified; F41.9 Anxiety disorder, unspecified; Z90.49 Acquired absence of other specified parts of digestive tract; F03.90 Unspecified dementia, unspecified severity, without behavioral disturbance, psychotic disturbance, mood disturbance, and anxiety; E66.9 Obesity, unspecified; K59.00 Constipation, unspecified; D72.829 Elevated white blood cell count, unspecified; R10.9 Unspecified abdominal pain; E11.65 Type 2 diabetes mellitus with hyperglycemia
CPT/HCPCS: 36416; 71045; 74018; 80048; 80053; 81001; 83605; 85025; G8978-GP-CM; G8979-GP-CK